=== PATIENT | male | born 1950 | race Caucasian/White ===

== ENCOUNTER 2017-11-12 00:09 | Emergency (ER) | payer OTHER ==
[2017-11-12] MEDS ORDERED: Ketorolac Tromethamine 30 MG/ML VIAL ONE (00:41)
--- NOTE | 2017-11-12 07:42 | RAD ---
SINGLE VIEW CHEST: Date: 11/12/17 COMPARISON: 03/27/16. HISTORY: Chest pain and nonproductive cough. FINDINGS: Single view of the chest shows a normal sized cardiomediastinal silhouette. There is no evidence of c onsolidation, mass, or pleural effusion. The bones are unremarkable. IMPRESSION: No evidence of acute cardiopulmonary disease. POS: [facility]
== END 2017-11-12 01:29 | disposition home or self-care (01) ==
LOC: ERS 00:09
DX: R09.1 Pleurisy (principal); E78.5 Hyperlipidemia, unspecified; E78.00 Pure hypercholesterolemia, unspecified; J44.9 Chronic obstructive pulmonary disease, unspecified; E11.9 Type 2 diabetes mellitus without complications; F43.10 Post-traumatic stress disorder, unspecified; F17.210 Nicotine dependence, cigarettes, uncomplicated; Z79.4 Long term (current) use of insulin; Z79.899 Other long term (current) drug therapy
CPT/HCPCS: 71045; 93005; 96374; 99406; J1885

== ENCOUNTER 2018-02-12 23:02 | Emergency (ER) | payer OTHER ==
--- NOTE | 2018-02-12 23:29 | RAD ---
FOUR VIEWS OF THE RIGHT KNEE: 02/12/18 INDICATION: Tripped over dog at home landing on right arm and right knee. Now with right knee pain. COMPARISON: None. FINDINGS: No acute fracture or subluxation is present. No joint capsular distention is evident. Enthesopathic c hanges seen off of the right knee. There is diffuse osteopenia and mild osteoarthritic change of the right knee. IMPRESSION: No acute osseous abnormality. POS: [facility]
--- NOTE | 2018-02-12 23:30 | RAD ---
SINGLE VIEW OF THE CHEST: 02/12/18 INDICATION: Chest pain after fall at home landing on right arm and right shoulder. COMPARISON: Prior exam dated 11/12/17. FINDINGS: The lungs are clear. The cardiomediastinal silhouette is within normal limits. No pleural effusion, pneumothorax is evident. No definite acute osseous abnormality is demonstrated. IMPRESSION: No acute cardiopulmonary abnormality. POS: [facility]
[2018-02-13] MEDS ORDERED: Morphine 4 MG/ML VIAL ONE (00:46)
[2018-02-13] MEDS ORDERED: Ondansetron ODT 4 MG TAB ONE (00:46)
[2018-02-13] MEDS ORDERED: HYDROcodone/Acetaminophen 5/325 mg Tablet ONE (02:29)
--- NOTE | 2018-02-13 08:32 | CT ---
PRELIMINARY REPORT/[facility]/EMERGENTY AFTER-HOURS PROCEDURE CT Chest Without Intravenous Contrast CLINICAL HISTORY: 68 years old, male; Injury or trauma; Fall; Initial encounter; Abrasion; Patient HX: M68 presents to ed for fall. Pt reports tripping over his dog a few hours ago at home and reports falling. Pt reports right shoulder, right chest, and right knee pain. Pt reports he is unable to take a deep breath due to the pain. Pt denies hitting his head TECHNIQUE: Axial computed tomography images of the chest without intravenous contrast. Coronal and sagittal reformatted images were created and reviewed. COMPARISON: No relevant prior studies available. FINDINGS: Lungs: Mild scarring/subsegmental atelectasis. Minimal emphysema in the lungs. Vague density in the l eft upper lobe on image 17 is nonspecific No mass. No consolidation. Pleural space: Unremarkable. No pneumothorax. No significant effusion. Heart: Coronary calcifications noted. No cardiomegaly. No significant pericardial effusion. Bones/joints: Question minimal irregularity to the right fifth and sixth ribs anteriorly. No dislocat ion. Soft tissues: Unremarkable. Vasculature: Unremarkable. No thoracic aortic aneurysm. Lymph nodes: Unremarkable. No enlarged lymph nodes. Cirrhosis. Faint hypodensity in the right lobe adjacent to the falciform ligament measuring 11 mm not fully characterized IMPRESSION: Question minimal irregularity to the right fifth and sixth ribs anteriorly. Correlate for point tende rness. No definite pneumothorax Coronary artery disease Minimal emphysema Cirrhosis and indeterminate hypodensity in the right lobe which may be further characterized on a non urgent basis Thank you for allowing us to participate in the care of your patient. Dictated and Authenticated by: Roberto Dotson MD 02/13/2018 1:52 AM Central Time ([place] & [place]) FINAL REPORT CT CHEST NONCONTRAST CT THORACIC SPINE NONCONTRAST: DATE: 02/13/18. TIME: Performed on an emergency basis at 0113 hours. HISTORY: Fall. Chest injury. Back injury. FINDINGS: The findings agree with the preliminary report from [facility]. Subtle irregularity involving the anterior aspect of the right 5th and 6th ribs is favored to represent nondisplaced fractures. N o evidence of pneumothorax. Atherosclerosis. Degenerative changes of the thoracic spine are apparent without acute osseous abnormalities demonstra amari. Code QA POS: [facility]
--- NOTE | 2018-04-17 12:32 | EKG ---
Test Reason : Blood Pressure : / mmHG Vent. Rate : 079 BPM Atrial Rate : 079 BPM P-R Int : 196 ms QRS Dur : 096 ms QT Int : 384 ms P-R-T Axes : 055 024 072 degrees QTc Int : 440 ms Normal sinus rhythm Anterior infarct , age undetermined Abnormal ECG Confirmed by OLIVE MERCADO ([id number]), editorial intern NICHOLE COOPER ([id number]) on 04/17/2018 12:31:49 PM Referred By: Confirmed By:OLIVE MERCADO
== END 2018-02-13 02:50 | disposition home or self-care (01) ==
LOC: ERS 23:02
DX: S22.41XA Multiple fractures of ribs, right side, initial encounter for closed fracture (principal); S80.01XA Contusion of right knee, initial encounter; E78.5 Hyperlipidemia, unspecified; E11.9 Type 2 diabetes mellitus without complications; F32.9 Major depressive disorder, single episode, unspecified; F43.10 Post-traumatic stress disorder, unspecified; F17.210 Nicotine dependence, cigarettes, uncomplicated; Z79.4 Long term (current) use of insulin; I10 Essential (primary) hypertension; J44.9 Chronic obstructive pulmonary disease, unspecified; Z79.899 Other long term (current) drug therapy; W01.0XXA Fall on same level from slipping, tripping and stumbling without subsequent striking against object, initial encounter
CPT/HCPCS: 71045; 71250; 93005; 94799; 96374; J2270; Q0162

== ENCOUNTER 2018-02-16 09:29 | Emergency (ER) | payer OTHER ==
--- NOTE | 2018-02-16 11:55 | RAD ---
CHEST 1 VIEW: Date: 02/16/18 HISTORY: Chest pain. COMPARISON: Chest radiograph dated 02/12/18. FINDINGS: Lungs are without focal air space consolidation, pneumothorax, or effusion. Cardiac silhouette and me diastinal contours within normal limits. IMPRESSION: No acute intrathoracic abnormality. POS: [facility]
== END 2018-02-16 11:40 | disposition home or self-care (01) ==
LOC: ERS 09:29
DX: F41.1 Generalized anxiety disorder (principal); E78.5 Hyperlipidemia, unspecified; I10 Essential (primary) hypertension; J44.9 Chronic obstructive pulmonary disease, unspecified; E11.9 Type 2 diabetes mellitus without complications; F32.9 Major depressive disorder, single episode, unspecified; F43.10 Post-traumatic stress disorder, unspecified; F17.210 Nicotine dependence, cigarettes, uncomplicated; Z79.899 Other long term (current) drug therapy; Z79.4 Long term (current) use of insulin
CPT/HCPCS: 71045; 93005; 99406

== ENCOUNTER 2019-09-02 18:45 | Inpatient (IN) | payer OTHER ==
[2019-09-02] MEDS ORDERED: methylPREDNISolone Sod Succ/PF 125 MG/2 ML VIAL ONE (19:04)
[2019-09-02 19:31] LABS: #Basophils 0.1 thou/uL (0.0-0.2); #Eosinphils 0.1 thou/uL (0.0-0.7); #Lymphocytes 3.2 thou/uL (1.20-3.40); #Monocytes 0.6 thou/uL (0.11-0.59); #Neutrophils 6.2 thou/uL (1.40-6.50); %Basophils 0.7 % (0.0-1.0); %Eosinophils 0.9 % (0.0-10.0); %Lymphocytes 31.5 % (21.0-51.0); %Monocytes 6.1 % (0.0-10.0); %Neutrophils 60.9 % (42.0-75.0); Hemoglobin 13.9 g/dL (14.0-18.0); Mean Corpuscular HGB CONC 34.6 g/dL (32.0-36.0); Mean Corpuscular Volume 95.4 fL (78.0-98.0); Mean Platelet Volume 6.5 fL (7.4-10.4); Platelet Count 234 thou/uL (130-400); RBC Distribution Width 13.5 % (11.5-14.5); Red Blood Cell (RBC) Count 4.21 mill/uL (4.70-6.10); White Blood Cell (WBC) Count 10.1 thou/uL (4.8-10.8)
[2019-09-02] MEDS ORDERED: Albuterol Sulfate 2.5 mg/3 ml Neb ONE (19:36)
--- NOTE | 2019-09-02 19:50 | RAD ---
EXAM: Single view of the chest HISTORY: Cough and shortness of breath COMPARISON: 02/16/2018 FINDINGS: Single view of the chest shows a normal sized cardiomediastinal silhouette. There is no thang dence of consolidation, mass, or pleural effusion. The bones are unremarkable. IMPRESSION: No evidence of acute cardiopulmonary disease
[2019-09-02 19:52] LABS: ALT (SGPT) 32 U/L (8-55); AST (SGOT) 32 U/L (5-34); Albumin 4.6 g/dL (3.4-4.8); Alkaline Phosphatase 72 U/L (40-110); Anion Gap 21 mmol/L (10-20); BUN (Urea Nitrogen) 10 mg/dL (8.4-25.7); Bilirubin, Total 0.4 mg/dL (0.2-1.2); CK (CPK) 78 U/L (30-200); Calc. Creatinine Clearance 0 mL/min (70-130); Calcium 9.5 mg/dL (7.8-10.44); Carbon Dioxide 20 mmol/L (23-31); Chloride 101 mmol/L (98-107); Estimated GFR-MDRD Greater than 90; Globulin 2.9 g/dL (2.4-3.5); Glucose 132 mg/dL (80-115); Potassium 3.7 mmol/L (3.5-5.1); Protein, Total 7.5 g/dL (5.8-8.1); Sodium 138 mmol/L (136-145)
[2019-09-02] MEDS ORDERED: Sodium Chloride 0.9% 100 ML ONE (20:01)
[2019-09-02] MEDS ORDERED: Piperacillin/Tazobactam 4.5 GM VIAL ONE ×2 (20:01→20:03)
[2019-09-02] MEDS ORDERED: Albuterol Sulfate 2.5 mg/0.5 ml Neb ONE (20:19)
[2019-09-02] MEDS ORDERED: Benzonatate 100 MG CAP PO SCH (21:45)
[2019-09-02 22:06] LABS: Bacteria/HPF None Seen HPF (None Seen); Bilirubin Negative (Negative); Blood, Urine Trace (Negative); Clarity Clear (Clear); Glucose, Urine (Dipstick) 150 mg/dL (Negative); Leukocyte 25 Leu/uL (Negative); Mucous/LPF 1+ LPF (<2+); Nitrite Negative (Negative); Protein, Urine (Dipstick) 20 mg/dL (Neg-Trace); RBC/HPF 0-3 HPF (0-3); Squamous Epithelial 0-3 HPF (0-3); Urobilinogen Normal mg/dL (Less than 2); WBC/HPF 0-3 HPF (0-3)
[2019-09-02 22:23] LABS: Lactic Acid 9.1 mmol/L (0.5-2.2)
[2019-09-02] MEDS ORDERED: Lorazepam 2 MG/ML VIAL ONE (22:51)
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
[2019-09-02] MEDS ORDERED: Thiamine HCl 200 MG/2 ML VIAL SLOW IVP SCH (23:30)
[2019-09-02] MEDS ORDERED: Dextrose 5 %-0.45 % NaCl 1,000 ML IV SCH (23:30)
[2019-09-02] MEDS ORDERED: Loperamide HCl 2 MG CAP PO PRN (23:31)
[2019-09-02] MEDS ORDERED: hydrALAZINE 20 MG/ML VIAL SLOW IVP PRN (23:31)
[2019-09-02] MEDS ORDERED: Senokot S 8.6-50 MG TAB PO PRN (23:31)
[2019-09-02] MEDS ORDERED: cloNIDine 0.1 MG TAB PO PRN (23:31)
[2019-09-02] MEDS ORDERED: Dextrose 50% Abboject 50 ML SYRINGE SLOW IVP PRN (23:31)
[2019-09-02] MEDS ORDERED: Dextrose 5% in Water 1,000 ML IV PRN (23:31)
[2019-09-02] MEDS ORDERED: HumaLOG 300 UNITS/3 ML VIAL SC PRN (23:31)
[2019-09-02] MEDS ORDERED: Ondansetron PF 4 MG/2 ML Vial IVP PRN (23:31)
[2019-09-02] MEDS ORDERED: Acetaminophen 325 MG TAB PO PRN (23:31)
[2019-09-02] MEDS ORDERED: diphenhydrAMINE 25 MG CAP PO PRN (23:31)
[2019-09-02] MEDS ORDERED: Cepastat Lozenges 1 LOZ PO PRN (23:31)
[2019-09-02] MEDS ORDERED: Loratadine 10 MG TAB PO PRN (23:42)
[2019-09-02] MEDS ORDERED: Bacteriostatic Water 30 ML VIAL FS PRN (23:44)
[2019-09-03] MEDS: Diabetic Tussin 200 MG/10 ML UDCUP PO PRN ×3 (00:13→20:37)
[2019-09-03] MEDS: traZODone HCl 50 MG TAB PO PRN ×2 (00:13→20:37)
[2019-09-03] MEDS ORDERED: HumaLOG 300 UNITS/3 ML VIAL SC SCH (01:15)
[2019-09-03] MEDS: methylPREDNISolone Sod Succ 40 MG VIAL IVP SCH ×5 (01:42→23:43)
[2019-09-03] MEDS: Benzonatate 100 MG CAP PO PRN ×3 (01:53→20:37)
[2019-09-03 03:28] LABS: Lactic Acid 4.2 mmol/L (0.5-2.2)
[2019-09-03 03:39] LABS: ALT (SGPT) 37 U/L (8-55); AST (SGOT) 40 U/L (5-34); Alkaline Phosphatase 60 U/L (40-110); Anion Gap 17 mmol/L (10-20); BUN (Urea Nitrogen) 11 mg/dL (8.4-25.7); Bilirubin, Total 0.3 mg/dL (0.2-1.2); Calc. Creatinine Clearance 107 mL/min (70-130); Calcium 8.5 mg/dL (7.8-10.44); Carbon Dioxide 19 mmol/L (23-31); Chloride 105 mmol/L (98-107); Estimated GFR-MDRD Greater than 90; Globulin 2.7 g/dL (2.4-3.5); Glucose 307 mg/dL (80-115); Potassium 4.3 mmol/L (3.5-5.1); Protein, Total 6.7 g/dL (5.8-8.1); Sodium 137 mmol/L (136-145)
[2019-09-03 07:08] LABS: Lactic Acid 2.8 mmol/L (0.5-2.2)
[2019-09-03] MEDS: Enoxaparin Sodium 40 MG/0.4 ML SYRINGE SC SCH (08:12)
[2019-09-03] MEDS: Lorazepam 2 MG/ML VIAL SLOW IVP PRN ×2 (08:16→16:21)
[2019-09-03] MEDS: Folic Acid 1 MG TAB PO SCH (08:17)
[2019-09-03] MEDS: Thiamine 100 MG TAB PO SCH (08:17)
[2019-09-03] MEDS: glipiZIDE 5 MG TAB PO SCH ×2 (08:17→16:21)
[2019-09-03] MEDS: Famotidine 20 MG TAB PO SCH ×2 (08:17→20:37)
[2019-09-03] MEDS: Multivit, Therapeutic 1 TAB PO SCH (08:17)
[2019-09-03] MEDS: Aspirin 81 mg Enteric Coated Tablet PO SCH (08:17)
[2019-09-03] MEDS: Insulin Glargine 17 UNITS in Pre-Filled Syringe 1 EACH SC SCH ×2 (09:20→20:46)
[2019-09-03] MEDS: Lactated Ringer's 1,000 ML IV SCH ×3 (09:20→20:36)
[2019-09-03] MEDS: Nicotine 14 MG PATCH TD SCH (09:21)
[2019-09-03] MEDS ORDERED: Iopamidol 370 76% 100 ML VIAL ONE (09:47)
--- NOTE | 2019-09-03 11:19 | CT ---
EXAM: CT angiogram of the chest including 3-D rendering: HISTORY: Cough, shortness of breath COMPARISON: 02/13/[address] FINDINGS: Adequate opacification of the main pulmonary arteries. The more peripheral particularly lower lobe br anches are somewhat less than optimally opacified and show some motion artifact which lowers the sensitivity of the smaller branch peripheral arteries. 3 vessel coronary calcific disease. Several areas of groundglass opacity changes in the right upper lobe measure up to 0.9 x 1.6 cm in si ze as well as a groundglass opacity focus in the medial aspect of the right lower lobe measuring 1.0 x 2.3 cm in size. These are nonspecific but focal areas of inflammation/infection could certainly account for this. They were not present on the prior study. No evidence for aortic aneurysm or dissection. No convincing CT evidence for acute pulmonary embolism. No evidence for mediastinal mass or adenopathy. No evidence for pleural or pericardial effusion. Evidence for portal hypertension. 1.1 cm nodular focus in the left adrenal gland possibly an adenoma. Somewhat nodular liver margin. IMPRESSION: No convincing CT evidence for acute pulmonary embolism. Multiple scattered foci of groundglass opacity changes in the right lower lobe and right upper lobe, nonspecific with inflammatory/infectious etiologies being considered more likely. Consider 3 month follow-up CT scan for further assessment in this regard. Other findings as above.
[2019-09-03] MEDS: HumaLOG 300 UNITS/3 ML VIAL SC PRN ×2 (12:38→18:33)
--- NOTE | 2019-09-03 13:16 | PDOC.HOSPP ---
- Subjective Encounter Date: 09/03/19 Encounter Time: 09:14 Subjective: 69 y/o male with chronic alcohol and tobacco abuse, HTN, COPD, DM and others admitted with worsening cough and SOB associated with body aches, pleuritic chest pain and wheezing.. Found to have lactic acidosis. Feeling better. Still coughing. No fever, nausea or vomiting. - Objective Vital Signs & Weight: Vital Signs (12 hours) Temp Pulse Resp BP Pulse Ox 09/03/19 12:00 98.3 F 87 18 118/70 94 L 09/03/19 10:57 77 20 96 09/03/19 07:52 81 20 95 09/03/19 07:40 97 09/03/19 07:38 99.1 F 78 18 139/72 97 09/03/19 03:31 98.1 F 92 18 122/64 93 L Weight Weight 186 lb 11.2 oz I&O: 09/02/19 09/03/19 09/04/19 06:59 06:59 06:59 Intake Total 640 Output Total 1500 Balance -860 Result Diagrams: 09/02/19 19:19 09/03/19 03:01 Additional Labs: Accuchecks 09/03/19 09/02/19 05:12 23:46 POC Glucose 213 H 224 H Hospitalist ROS - Medication Medications: Active Medications Generic Name Dose Route Start Last Admin Trade Name Freq PRN Reason Stop Dose Admin Albuterol/Ipratropium 3 ml 09/03/19 07:00 09/03/19 10:57 Duoneb NEB 3 ml [id number] OUMOU Administration Aspirin 81 mg 09/03/19 09:00 09/03/19 08:17 Ecotrin PO 81 mg DAILY OUMOU Administration Benzonatate 100 mg 09/02/19 23:31 09/03/19 08:16 Tessalon PO 100 mg Q6H PRN Administration Cough Enoxaparin Sodium 40 mg 09/03/19 09:00 09/03/19 08:12 Lovenox SC 40 mg 0900 OUMOU Administration Famotidine 20 mg 09/03/19 09:00 09/03/19 08:17 Pepcid PO 20 mg BID OUMOU Administration Folic Acid 1 mg 09/03/19 09:00 09/03/19 08:17 Folvite PO 1 mg DAILY OUMOU Administration Glipizide 10 mg 09/03/19 07:30 09/03/19 08:17 Glucotrol PO 10 mg BID-AC OUMOU Administration Guaifenesin 200 mg 09/02/19 23:31 09/03/19 05:44 Robitussin Sf PO 200 mg Q4H PRN Administration Cough Insulin Glargine 17 units/ 0.17 mls @ 0 mls/hr 09/03/19 09:00 09/03/19 09:20 Miscellaneous Medication SC 0.17 mls BID OUMOU Administration As Directed Lactated Ringer's 1,000 mls @ 100 mls/hr 09/03/19 08:15 09/03/19 09:20 Lactated Ringer's IV 1,000 mls .Q10H OUMOU Administration Insulin Human Lispro 0 units 09/03/19 04:15 09/03/19 12:38 Humalog SC 10 unit .MODERATE SLIDING SC PRN Administration Moderate Correctional Scale Lorazepam 2 mg 09/02/19 23:28 09/03/19 08:16 Ativan SLOW IVP 2 mg Q2H PRN Administration Anxiety/Agitation Methylprednisolone Sodium Succinate 40 mg 09/02/19 23:59 09/03/19 12:38 Solu-Medrol IVP 40 mg Q6HR OUMOU Administration Metoprolol Succinate 25 mg 09/03/19 09:00 09/03/19 08:17 Toprol Xl PO 25 mg DAILY OUMOU Administration Multivitamins 1 tab 09/03/19 09:00 09/03/19 08:17 Theragran PO 1 tab DAILY OUMOU Administration Nicotine 14 mg 09/03/19 09:00 09/03/19 09:21 Nicoderm Patch TD 14 mg Q24HR OUMOU Administration Ondansetron HCl 4 mg 09/02/19 23:31 09/03/19 08:16 Zofran IVP 4 mg Q6H PRN Administration Nausea/Vomiting Thiamine HCl 100 mg 09/03/19 09:00 09/03/19 08:17 Thiamine PO 100 mg DAILY OUMOU Administration Trazodone HCl 100 mg 09/02/19 23:39 09/03/19 00:13 Desyrel PO 100 mg HS PRN Administration Insomnia - Exam General Appearance: awake alert Eye: anicteric sclera ENT: normocephalic atraumatic, moist mucosa Neck: supple, no JVD Heart: RRR Respiratory: no ronchi, normal chest expansion Respiratory - other findings: fair air entry with fine crackles Gastrointestinal: soft, non-tender, non-distended, normal bowel sounds Extremities: no cyanosis, no edema Neurological: cranial nerve grossly intact, no focal deficits Psychiatric: normal affect, A&O x 3 Hosp A/P (1) COPD exacerbation Code(s): J44.1 - CHRONIC OBSTRUCTIVE PULMONARY DISEASE W (ACUTE) EXACERBATION Status: Acute (2) Metabolic acidosis Code(s): E87.2 - ACIDOSIS Status: Acute (3) Elevated lactic acid level Code(s): R79.89 - OTHER SPECIFIED ABNORMAL FINDINGS OF BLOOD CHEMISTRY Status : Acute (4) Alcohol abuse Code(s): F10.10 - ALCOHOL ABUSE, UNCOMPLICATED Status: Acute (5) Alcoholic ketoacidosis Code(s): E87.2 - ACIDOSIS Status: Acute (6) Cirrhosis Code(s): K74.60 - UNSPECIFIED CIRRHOSIS OF LIVER Status: Acute (7) Diabetes Code(s): E11.9 - TYPE 2 DIABETES MELLITUS WITHOUT COMPLICATIONS Status: Acute (8) HCV (hepatitis C virus) Code(s): B19.20 - UNSPECIFIED VIRAL HEPATITIS C WITHOUT HEPATIC COMA Status: Acute (9) HLD (hyperlipidemia) Code(s): E78.5 - HYPERLIPIDEMIA, UNSPECIFIED Status: Acute (10) History of liver cancer Code(s): Z85.05 - PERSONAL HISTORY OF MALIGNANT NEOPLASM OF LIVER Status: Acute - Plan Continue empirical antibiotics and IV fluid. Alcohol withdrawal treatment to continue. Substitute NS with LR due to worsening acidosis. Continue bronchodilators Get CTA chest. Repeat labs in the am.
[2019-09-03] MEDS: HYDROcodone/Acetaminophen 5/325 mg Tablet PO PRN (20:37)
[2019-09-03] MEDS ORDERED: Prevnar 13-Val Conj/PF 0.5 ML SYRINGE IM ONE (21:00)
[2019-09-03] MEDS ORDERED: Insulin Glargine 20 UNITS in Pre-Filled Syringe 1 EACH SC SCH (21:00)
[2019-09-03] MEDS ORDERED: Atorvastatin Calcium 40 MG TAB PO SCH (21:00)
[2019-09-04 02:04] VITALS: BMI 26.2
[2019-09-04 05:18] LABS: Anion Gap 14 mmol/L (10-20); BUN (Urea Nitrogen) 10 mg/dL (8.4-25.7); Calc. Creatinine Clearance 115 mL/min (70-130); Calcium 9.3 mg/dL (7.8-10.44); Carbon Dioxide 22 mmol/L (23-31); Chloride 105 mmol/L (98-107); Estimated GFR-MDRD Greater than 90; Glucose 267 mg/dL (80-115); Potassium 4.1 mmol/L (3.5-5.1); Sodium 137 mmol/L (136-145)
[2019-09-04 05:32] LABS: Band 8 % (5-11); Hemoglobin 12.6 g/dL (14.0-18.0); Hypochromia SLIGHT = 6-15 cells (100X) (0-5/hpf); Lymphocytes 3 % (21-51); MDiff Complete? YES; Mean Corpuscular Hemoglobin 32.2 pg (27.0-31.0); Mean Corpuscular Volume 97.6 fL (78.0-98.0); Mean Platelet Volume 7.3 fL (7.4-10.4); Monocytes 3 % (0-10); Neutrophil 86 % (42-75); Platelet Count 209 thou/uL (130-400); Platelet Morphology Comment Appears Adequate; RBC Distribution Width 13.6 % (11.5-14.5); Red Blood Cell (RBC) Count 3.92 mill/uL (4.70-6.10)
[2019-09-04] MEDS: methylPREDNISolone Sod Succ 40 MG VIAL IVP SCH (05:55)
[2019-09-04] MEDS: Lorazepam 2 MG/ML VIAL SLOW IVP PRN ×2 (05:55→10:17)
[2019-09-04 08:06] VITALS: BP 151/68; TEMP 97.8
[2019-09-04] MEDS: Folic Acid 1 MG TAB PO SCH (08:10)
[2019-09-04] MEDS: Insulin Glargine 17 UNITS in Pre-Filled Syringe 1 EACH SC SCH (08:10)
[2019-09-04] MEDS: Aspirin 81 mg Enteric Coated Tablet PO SCH (08:10)
[2019-09-04] MEDS: Thiamine 100 MG TAB PO SCH (08:10)
[2019-09-04] MEDS: glipiZIDE 5 MG TAB PO SCH (08:10)
[2019-09-04] MEDS: Multivit, Therapeutic 1 TAB PO SCH (08:10)
[2019-09-04] MEDS: Enoxaparin Sodium 40 MG/0.4 ML SYRINGE SC SCH (08:10)
[2019-09-04] MEDS: Famotidine 20 MG TAB PO SCH (08:10)
[2019-09-04] MEDS: Nicotine 14 MG PATCH TD SCH ×2 (08:11→08:18)
[2019-09-04] MEDS: HYDROcodone/Acetaminophen 5/325 mg Tablet PO PRN (08:11)
[2019-09-04] MEDS: Lactated Ringer's 1,000 ML IV SCH (08:12)
[2019-09-04] MEDS: HumaLOG 300 UNITS/3 ML VIAL SC PRN ×2 (08:21→11:07)
--- NOTE | 2019-09-04 15:31 | DIS ---
DATE OF ADMISSION: 09/02/2019 DATE OF DISCHARGE: 09/04/2019 PRIMARY CARE PROVIDER: BON. DISCHARGE DIAGNOSES: 1. Chronic obstructive pulmonary disease exacerbation. 2. Right multifocal pneumonia. 3. Sepsis. present on admission. 4. Lactic acidosis thought to be due to metformin use. 5. Metabolic acidosis 6. Possible alcoholic ketoacidosis. 7. Liver cirrhosis. 8. Diabetes mellitus. 9. Hepatitis C infection. 10. Hyperlipidemia. 11. Prior history of liver cancer, status post resection. 12. Post-traumatic stress disorder. 13. Alcohol abuse. HOSPITAL COURSE: A 69-year-old male with known history of chronic alcohol and tobacco abuse, hypertension, COPD, diabetes, and others, admitted with worsening cough and shortness of breath associated with generalized body ache, pleuritic chest pain, and wheezing. The patient was found to have severe lactic acidosis initially forward trending to 10. He was also found to have a hyperglycemia with blood sugars in 300 as well as metabolic acidosis. Impression of COPD exacerbation was made , and the patient was started on IV antibiotics, steroid, bronchodilators, and mucolytics. The patient improved and lactic acidosis resolved with IV fluids and insulin therapy. Further evaluation with CT angio chest showed no PE; however, multifocal right lung infiltrates noted suggestive of infectious etiology. The patient remained on room air with good saturation. He remained stable and was subsequently discharged. Given that he had lactic acidosis on presentation and was found to be on metformin, it was felt that the lactic acidosis was due to metformin, hence it was discontinued. The patient also was dry on presentation, hence hydrochlorothiazide was discontinued at discharge. The patient with chronic alcohol abuse, also received Ativan p.r.n. for alcohol withdrawal protocol. He was advised to follow up with PCP in 1 week. PHYSICAL EXAMINATION: VITAL SIGNS: Temperature 97.8, pulse 79, respiratory rate 18, SpO2 of 92% on room air, and blood pressure is 151/68. GENERAL: Male patient in no obvious distress. Afebrile. Anicteric. Acyanotic. HEENT: Normocephalic and atraumatic. Oral mucosa is moist. CARDIOVASCULAR: Regular rhythm and rate with normal heart sounds 1 and 2. RESPIRATORY: Fair air entry bilaterally with some crackles on transmitted breath sound on the right lungs. No rhonchi were appreciated. GI: Full, soft, nontender, and nondistended with normal bowel sounds. EXTREMITIES: Grossly normal looking atraumatic with no edema or erythema. MOLDER HAND: Conscious, alert, and oriented x3 with appropriate mental status. Cranial nerves 2 through 12 are grossly intact. PSYCHIATRIC: Anxious with occasional tremor of the right upper extremity. DISCHARGE CONDITION: Improved. DISCHARGE DISPOSITION: Home. FOLLOWUP: Follow up with PCP in 1 week. DISCHARGE MEDICATIONS: 1. Amlodipine 10 mg p.o. daily. 2. Lipitor 40 mg p.o. daily at bedtime. 3. Glipizide 10 mg p.o. b.i.d. 4. Guaifenesin/dextromethorphan p.o. b.i.d. 5. NovoLog insulin 5 units subcutaneously daily. 6. Levemir 35 units subcutaneous daily. 7. Ipratropium bromide two sprays both nares b.i.d. 8. Loratadine 10 mg p.o. daily. 9. Metoprolol 25 mg p.o. daily. 10. Omeprazole 40 mg p.o. daily. 11. Trazodone 200 mg p.o. daily at bedtime. 12. Aspirin 81 mg p.o. daily. 13. Folic acid 1 mg p.o. daily. 14. Levofloxacin 750 mg p.o. daily for 7 days. 15. Lorazepam 1 mg p.o. t.i.d. p.r.n. for anxiety x20 tablets. 16. Multivitamin one tablet p.o. daily. 17. Thiamine 100 mg p.o. daily. Discharge took more than 37 minutes. Job ID: [id number] [facility]
--- NOTE | 2019-09-05 07:53 | PQF ---
Ortega Mckeon OBI, CHIZOBA C [id number] CLINICAL DOCUMENTATION CLARIFICATION FORM: POST DISCHARGE Addendum to original discharge summary date: ____ Late entry note date: __ DATE: 09/05/19 ATTN: Lor Chin Obi Please exercise your independent, professional judgment in responding to the clarification form. Clinical indicators are provided on the bottom of this form for your review Please check appropriate box(s) to clarify if the following diagnosis has been ruled in or ruled out: Sepsis [ X ] Ruled in diagnosis [ ] Continue to treat [ X ] Resolved [ ] Ruled out diagnosis [ ] Cannot rule out diagnosis [ ] Other diagnosis [ ] Unable to determine In addition, please specify: Present on Admission (POA): [x ] Yes [ ] No [ ] Unable to determine For continuity of documentation, please document condition throughout progress notes and discharge summary. Thank You. CLINICAL INDICATORS - SIGNS / SYMPTOMS / LABS ED provider note p1 09/02 Pt presents for evaluation of SOB ED provider note p3 09/02 Vital sign BP 103/52, Pulse 108, Resp 22 ED provider note p1 09/02 Pt meets Sepsis criteria with tachypnea, tachycardia and elevated lactic acid RISK FACTORS ED provider note p1 09/02 Pneumonia ED provider note p1 09/02 COPD exacerbation ED provider note p1 09/02 Sepsis TREATMENTS JAN 06 IV Zosyn JAN 06 IV Levaquin JAN 06 Solu-medrol injection (This form is maintained as a part of the permanent medical record) 2014 [email or web address]. All Rights Reserved [email or web address] [not provided] [email or web address]
== END 2019-09-04 11:30 | disposition home or self-care (01) | DRG 871 ==
LOC: ERS 18:45 → 2NO 23:51
PROVIDERS: ADMIT Internal Medicine; ATTEND Internal Medicine
DX: A41.9 Sepsis, unspecified organism (principal); J18.9 Pneumonia, unspecified organism; J44.1 Chronic obstructive pulmonary disease with (acute) exacerbation; E87.2 Acidosis; F10.239 Alcohol dependence with withdrawal, unspecified; J44.0 Chronic obstructive pulmonary disease with (acute) lower respiratory infection; E78.5 Hyperlipidemia, unspecified; I10 Essential (primary) hypertension; F17.200 Nicotine dependence, unspecified, uncomplicated; K74.60 Unspecified cirrhosis of liver; B19.20 Unspecified viral hepatitis C without hepatic coma; T38.3X5A Adverse effect of insulin and oral hypoglycemic [antidiabetic] drugs, initial encounter; F43.10 Post-traumatic stress disorder, unspecified; E11.65 Type 2 diabetes mellitus with hyperglycemia; Z85.05 Personal history of malignant neoplasm of liver; Z28.21 Immunization not carried out because of patient refusal; Z79.899 Other long term (current) drug therapy; Z79.4 Long term (current) use of insulin
CPT/HCPCS: 36415; 36416; 71045; 71275; 80048; 80053; 81003; 81015; 82550; 83605; 83880; 84484; 85025; 87040; 87081; 87430; 87633; 93005; 94640; 96365; 96366; 96367; 96375; 99406; J1650; J1815; J1956; J2060; J2405; J2543; J2920; J2930; J3411; J3490; J7611; J7620; Q9967

== ENCOUNTER 2019-10-22 18:35 | Emergency (ER) | payer OTHER | END 2019-10-22 19:49 | disposition home or self-care (01) | LOC: ERS 18:35 | DX: F10.129 Alcohol abuse with intoxication, unspecified (principal); J44.9 Chronic obstructive pulmonary disease, unspecified; E11.9 Type 2 diabetes mellitus without complications; I10 Essential (primary) hypertension; F17.210 Nicotine dependence, cigarettes, uncomplicated | CPT/HCPCS: 99284 ==

== ENCOUNTER 2019-11-11 00:29 | Emergency (ER) | payer OTHER ==
[2019-11-11 01:26] LABS: #Eosinphils 0.1 thou/uL (0.0-0.7); #Monocytes 0.4 thou/uL (0.11-0.59); #Neutrophils 5.1 thou/uL (1.40-6.50); %Basophils 0.7 % (0.0-1.0); %Eosinophils 0.9 % (0.0-10.0); %Monocytes 6.3 % (0.0-10.0); %Neutrophils 77.2 % (42.0-75.0); Hemoglobin 14.2 g/dL (14.0-18.0); Mean Corpuscular HGB CONC 34.2 g/dL (32.0-36.0); Mean Corpuscular Hemoglobin 32.9 pg (27.0-31.0); Mean Corpuscular Volume 96.3 fL (78.0-98.0); Mean Platelet Volume 6.8 fL (7.4-10.4); Platelet Count 216 thou/uL (130-400); RBC Distribution Width 12.9 % (11.5-14.5); White Blood Cell (WBC) Count 6.6 thou/uL (4.8-10.8)
[2019-11-11 01:47] LABS: ALT (SGPT) 28 U/L (8-55); AST (SGOT) 31 U/L (5-34); Albumin 4.2 g/dL (3.4-4.8); Alcohol Less than 10 mg/dL (Less than 10); Alkaline Phosphatase 67 U/L (40-110); Anion Gap 16 mmol/L (10-20); BUN (Urea Nitrogen) 12 mg/dL (8.4-25.7); Bilirubin, Total 0.4 mg/dL (0.2-1.2); Calc. Creatinine Clearance 0 mL/min (70-130); Calcium 9.6 mg/dL (7.8-10.44); Carbon Dioxide 24 mmol/L (23-31); Chloride 104 mmol/L (98-107); Estimated GFR-MDRD Greater than 90; Globulin 2.9 g/dL (2.4-3.5); Glucose 217 mg/dL (80-115); Potassium 3.7 mmol/L (3.5-5.1); Protein, Total 7.1 g/dL (5.8-8.1); Sodium 140 mmol/L (136-145)
[2019-11-11 01:47] LABS: Bacteria/HPF None Seen HPF (None Seen); Bilirubin Negative (Negative); Blood, Urine Trace (Negative); Clarity Clear (Clear); Glucose, Urine (Dipstick) Greater than 1000 mg/dL (Negative); Leukocyte 75 Leu/uL (Negative); Nitrite Negative (Negative); Protein, Urine (Dipstick) 10 mg/dL (Neg-Trace); RBC/HPF 0-3 HPF (0-3); Squamous Epithelial 0-3 HPF (0-3); Urobilinogen Normal mg/dL (Less than 2); WBC/HPF 21-50 HPF (0-3)
== END 2019-11-11 02:35 | disposition home or self-care (01) ==
LOC: ERS 00:29
DX: E11.649 Type 2 diabetes mellitus with hypoglycemia without coma (principal); F17.210 Nicotine dependence, cigarettes, uncomplicated; J44.9 Chronic obstructive pulmonary disease, unspecified; I10 Essential (primary) hypertension; E78.00 Pure hypercholesterolemia, unspecified; F32.9 Major depressive disorder, single episode, unspecified; E78.5 Hyperlipidemia, unspecified; F43.10 Post-traumatic stress disorder, unspecified; Z79.4 Long term (current) use of insulin; Z79.82 Long term (current) use of aspirin; Z79.899 Other long term (current) drug therapy; Z71.6 Tobacco abuse counseling
CPT/HCPCS: 36415; 36416; 80053; 80307; 81003; 81015; 85025; 87086; 99284

== ENCOUNTER 2020-12-23 06:12 | Emergency (ER) | payer OTHER ==
[2020-12-23] MEDS ORDERED: Dextrose 50% Abboject 50 ML SYRINGE ONE (06:35)
[2020-12-23 06:46] LABS: #Lymphocytes 1.8 thou/uL (1.20-3.40); #Monocytes 0.3 thou/uL (0.11-0.59); #Neutrophils 5.9 thou/uL (1.40-6.50); %Basophils 0.3 % (0.0-1.0); %Eosinophils 0.1 % (0.0-10.0); %Lymphocytes 22.7 % (21.0-51.0); %Monocytes 3.3 % (0.0-10.0); %Neutrophils 73.5 % (42.0-75.0); Hemoglobin 15.8 g/dL (14.0-18.0); Mean Corpuscular Hemoglobin 35.3 pg (27.0-31.0); Platelet Count 246 thou/uL (130-400); RBC Distribution Width 12.2 % (11.5-14.5); Red Blood Cell (RBC) Count 4.48 mill/uL (4.70-6.10)
[2020-12-23 06:51] LABS: INR-International Normal Ratio 0.8; Prothrombin Time 11.6 sec (12.0-14.7)
[2020-12-23 07:05] LABS: Acetaminophen Less than 6.0 mcg/mL (10.0-30.0); Alcohol 13 mg/dL (Less than 10); Salicylate Less than 8.0 mg/dL (15.0-30.0)
[2020-12-23 07:06] LABS: ALT (SGPT) 36 U/L (8-55); AST (SGOT) 46 U/L (5-34); Albumin 4.7 g/dL (3.4-4.8); Alkaline Phosphatase 74 U/L (40-110); Anion Gap 23 mmol/L (10-20); BUN (Urea Nitrogen) 12 mg/dL (8.4-25.7); Bilirubin, Total 0.4 mg/dL (0.2-1.2); Calc. Creatinine Clearance 0 mL/min (70-130); Calcium 9.6 mg/dL (7.8-10.44); Carbon Dioxide 21 mmol/L (23-31); Chloride 104 mmol/L (98-107); Globulin 3.4 g/dL (2.4-3.5); Potassium 4.7 mmol/L (3.5-5.1); Protein, Total 8.1 g/dL (5.8-8.1); Sodium 143 mmol/L (136-145)
[2020-12-23 07:12] LABS: Glucose 41 mg/dL (80-115)
--- NOTE | 2020-12-23 07:41 | CT ---
Head CT without contrast 12/23/2020: COMPARISON: 08/10/2003 HISTORY: Headache, altered mental status TECHNIQUE: Axial CT imaging at 2.5 mm intervals from vertex through skull base without contrast. Spring nal and sagittal reformatted imaging obtained. FINDINGS: The visualized paranasal sinuses and mastoid air cells are well-aerated. No displaced lio rial fracture, intracranial hemorrhage, midline shift, or mass effect. Distal vertebral artery and cavernous carotid artery atherosclerotic calcification present. No displaced calvarial fracture. IMPRESSION: No intracranial hemorrhage or displaced calvarial fracture.
--- NOTE | 2020-12-23 08:00 | RAD ---
EXAM: Chest one view: HISTORY: Headaches, altered mental status COMPARISON: 09/02/2019 FINDINGS: Heart size: Within normal limits. Lungs: Clear of acute process. No evidence for confluent lobar pneumonia, significant pleural effusion, acute edema, or pneumothorax , or other significant acute process. IMPRESSION: No significant acute intrathoracic disease.
[2020-12-23] MEDS ORDERED: Dexamethasone 10 MG/ML VIAL ONE (08:46)
[2020-12-23] MEDS ORDERED: diphenhydrAMINE 50 MG/ML VIAL ONE (08:46)
[2020-12-23] MEDS ORDERED: Magnesium 2 GM/50 ML BAG (IN WATER) ONE (08:46)
[2020-12-23] MEDS ORDERED: Metoclopramide HCl 10 MG/2 ML VIAL ONE (09:00)
[2020-12-23 10:04] LABS: Amphetamine Not Detected (NotDetected); Barbiturates Screen Not Detected (NotDetected); Benzodiazepine Screen Not Detected (NotDetected); Cocaine Metabolite Screen Not Detected (NotDetected); Medtox Control Line Valid? VALID (VALID); Medtox Reader # READER 4; Methadone Not Detected (NotDetected); Methamphetamine Not Detected (NotDetected); Opiate Screen Not Detected (NotDetected); Oxycodone Screen Not Detected (NotDetected); Phencyclidine (PCP) Not Detected (NotDetected); THC/Cannabinoid Screen Not Detected (NotDetected); Tricyclic Screen Not Detected (NotDetected)
[2020-12-23] MEDS ORDERED: Acetaminophen 500 MG TAB ONE (11:25)
[2020-12-23] MEDS ORDERED: clonazePAM 0.5 MG TAB ONE (12:23)
[2020-12-23 17:26] LABS: SARS-CoV-2 PCR by NAA Not Detected (NotDetected)
== END 2020-12-23 18:08 ==
LOC: ERS 06:12
DX: R55 Syncope and collapse (principal); R51.9 Headache, unspecified; H53.9 Unspecified visual disturbance; E11.9 Type 2 diabetes mellitus without complications; E78.5 Hyperlipidemia, unspecified; E78.00 Pure hypercholesterolemia, unspecified; Z20.822 Contact with and (suspected) exposure to COVID-19; J44.9 Chronic obstructive pulmonary disease, unspecified; I10 Essential (primary) hypertension; F17.210 Nicotine dependence, cigarettes, uncomplicated; Z79.4 Long term (current) use of insulin; Z79.899 Other long term (current) drug therapy; Z79.82 Long term (current) use of aspirin
CPT/HCPCS: 36415; 36416; 70450; 71045; 80053; 80306; 80307; 82140; 82550; 83880; 84484; 85025; 85610; 85730; 87635; 93005; 96365; 96368; 96375; J1100; J1200; J2765; J3475; U0003; U0005

== ENCOUNTER 2021-04-09 12:28 | Emergency (ER) | payer OTHER ==
[2021-04-09 13:31] LABS: #Basophils 0.1 thou/uL (0.0-0.2); #Lymphocytes 2.6 thou/uL (1.20-3.40); #Monocytes 0.5 thou/uL (0.11-0.59); #Neutrophils 4.9 thou/uL (1.40-6.50); %Basophils 1.1 % (0.0-1.0); %Eosinophils 0.4 % (0.0-10.0); %Lymphocytes 31.6 % (21.0-51.0); %Monocytes 6.1 % (0.0-10.0); %Neutrophils 60.8 % (42.0-75.0); Hemoglobin 14.7 g/dL (14.0-18.0); Mean Corpuscular HGB CONC 35.9 g/dL (32.0-36.0); Mean Corpuscular Hemoglobin 35.5 pg (27.0-31.0); Mean Corpuscular Volume 98.8 fL (78.0-98.0); Mean Platelet Volume 6.9 fL (7.4-10.4); Platelet Count 252 thou/uL (130-400); RBC Distribution Width 12.5 % (11.5-14.5); Red Blood Cell (RBC) Count 4.15 mill/uL (4.70-6.10); White Blood Cell (WBC) Count 8.1 thou/uL (4.8-10.8)
[2021-04-09 13:52] LABS: ALT (SGPT) 33 U/L (8-55); AST (SGOT) 40 U/L (5-34); Albumin 4.3 g/dL (3.4-4.8); Alkaline Phosphatase 71 U/L (40-110); Anion Gap 14 mmol/L (10-20); BUN (Urea Nitrogen) 10 mg/dL (8.4-25.7); Bilirubin, Total 0.6 mg/dL (0.2-1.2); Calc. Creatinine Clearance 0 mL/min (70-130); Calcium 9.7 mg/dL (7.8-10.44); Carbon Dioxide 25 mmol/L (23-31); Chloride 100 mmol/L (98-107); Globulin 3.1 g/dL (2.4-3.5); Glucose 157 mg/dL (80-115); Lipase 26 U/L (8-78); Potassium 3.7 mmol/L (3.5-5.1); Protein, Total 7.4 g/dL (5.8-8.1); Sodium 135 mmol/L (136-145)
[2021-04-09 15:07] LABS: Bilirubin Negative (Negative); Blood, Urine Negative (Negative); Glucose, Urine (Dipstick) Negative (Negative); Ketone, Urine 15 mg/dL (Negative); Leukocyte Negative (Negative); Nitrite Negative (Negative); Protein, Urine (Dipstick) Negative (Neg-Trace); Specific Gravity, Urine 1.015 (1.005-1.030)
[2021-04-09 15:09] LABS: Clarity Clear (Clear)
[2021-04-09 15:10] LABS: Bacteria/HPF None Seen HPF (None Seen); RBC/HPF 0-3 HPF (0-3); Squamous Epithelial 0-3 HPF (0-3); WBC/HPF 0-3 HPF (0-3)
[2021-04-09] MEDS ORDERED: chlordiazePOXIDE HCl 25 MG CAP ONE (15:42)
[2021-04-09] MEDS ORDERED: Thiamine 100 MG TAB ONE (15:42)
[2021-04-09 16:45] LABS: SARS-CoV-2 NAA Rapid Test Not Detected (NotDetected)
[2021-04-09] MEDS ORDERED: Aspirin 325 MG TAB ONE (17:56)
[2021-04-09] MEDS ORDERED: Acetaminophen 500 MG TAB ONE (18:03)
== END 2021-04-09 23:56 ==
LOC: ERS 12:28
DX: R55 Syncope and collapse (principal); F10.10 Alcohol abuse, uncomplicated; E78.00 Pure hypercholesterolemia, unspecified; E11.9 Type 2 diabetes mellitus without complications; I10 Essential (primary) hypertension; F17.210 Nicotine dependence, cigarettes, uncomplicated; Z79.899 Other long term (current) drug therapy; Z79.4 Long term (current) use of insulin; Z79.82 Long term (current) use of aspirin
CPT/HCPCS: 36415; 70450; 71045; 80053; 81003; 82140; 83690; 84484; 85025; 93005; U0002; U0005

== ENCOUNTER 2021-10-09 21:46 | Emergency (ER) | payer OTHER ==
[2021-10-09 22:31] LABS: #Basophils 0.1 thou/uL (0.0-0.2); #Eosinphils 0.4 thou/uL (0.0-0.7); #Lymphocytes 2.5 thou/uL (1.20-3.40); #Monocytes 0.4 thou/uL (0.11-0.59); #Neutrophils 4.7 thou/uL (1.40-6.50); %Eosinophils 5.1 % (0.0-10.0); %Lymphocytes 31.3 % (21.0-51.0); %Monocytes 4.7 % (0.0-10.0); %Neutrophils 57.9 % (42.0-75.0); Hemoglobin 14.5 g/dL (14.0-18.0); Mean Corpuscular Hemoglobin 35.9 pg (27.0-31.0); Mean Platelet Volume 6.5 fL (7.4-10.4); Platelet Count 274 thou/uL (130-400); RBC Distribution Width 12.2 % (11.5-14.5); Red Blood Cell (RBC) Count 4.03 mill/uL (4.70-6.10); White Blood Cell (WBC) Count 8.1 thou/uL (4.8-10.8)
[2021-10-09 22:45] LABS: INR-International Normal Ratio 0.9; PTT 30.5 sec (22.9-36.1); Prothrombin Time 12.6 sec (12.0-14.7)
[2021-10-09 22:53] LABS: Acetaminophen Less than 6.0 mcg/mL (10.0-30.0); Alcohol 229 mg/dL (Less than 10); CK (CPK) 84 U/L (30-200); Salicylate Less than 8.0 mg/dL (15.0-30.0)
[2021-10-09 23:25] LABS: Bilirubin Negative (Negative); Blood, Urine Negative (Negative); Clarity Clear (Clear); Glucose, Urine (Dipstick) Normal (Negative); Ketone, Urine Negative (Negative); Leukocyte Negative Leu/uL (Negative); Nitrite Negative (Negative); Protein, Urine (Dipstick) Negative (Neg-Trace); Specific Gravity, Urine 1.008 (1.002-1.036); Urobilinogen Normal mg/dL (Less than 2); pH, Urine 5.5 (5.0-9.0)
[2021-10-10 00:40] LABS: ALT (SGPT) 43 U/L (8-55); AST (SGOT) 41 U/L (5-34); Albumin 4.5 g/dL (3.4-4.8); Alkaline Phosphatase 91 U/L (40-110); Anion Gap 15 mmol/L (10-20); BUN (Urea Nitrogen) 10 mg/dL (8.4-25.7); Bilirubin, Total 0.4 mg/dL (0.2-1.2); Calc. Creatinine Clearance 0 mL/min (70-130); Calcium 10.2 mg/dL (7.8-10.44); Carbon Dioxide 25 mmol/L (23-31); Chloride 102 mmol/L (98-107); Globulin 3.5 g/dL (2.4-3.5); Glucose 114 mg/dL (80-115); Magnesium 1.8 mg/dL (1.6-2.6); Potassium 3.8 mmol/L (3.5-5.1); Sodium 138 mmol/L (136-145)
[2021-10-10 02:00] LABS: Amphetamine Not Detected (NotDetected); Barbiturates Screen Not Detected (NotDetected); Benzodiazepine Screen Not Detected (NotDetected); Cocaine Metabolite Screen Not Detected (NotDetected); Methadone Not Detected (NotDetected); Methamphetamine Not Detected (NotDetected); Opiate Screen Not Detected (NotDetected); Oxycodone Screen Not Detected (NotDetected); Phencyclidine (PCP) Not Detected (NotDetected); THC/Cannabinoid Screen Not Detected (NotDetected); Tricyclic Screen Not Detected (NotDetected)
== END 2021-10-10 00:56 | disposition home or self-care (01) ==
LOC: ERS 21:46
DX: F10.129 Alcohol abuse with intoxication, unspecified (principal); Y90.8 Blood alcohol level of 240 mg/100 ml or more; I10 Essential (primary) hypertension; E11.9 Type 2 diabetes mellitus without complications; J44.9 Chronic obstructive pulmonary disease, unspecified; E78.00 Pure hypercholesterolemia, unspecified; F17.210 Nicotine dependence, cigarettes, uncomplicated; Z79.84 Long term (current) use of oral hypoglycemic drugs; Z79.82 Long term (current) use of aspirin; Z79.899 Other long term (current) drug therapy
CPT/HCPCS: 36415; 36416; 70450; 71045; 80053; 80306; 80307; 81003; 82140; 82550; 83735; 84443; 84484; 85025; 85610; 85730; 93005

== ENCOUNTER 2021-12-10 17:59 | Emergency (ER) | payer OTHER ==
[2021-12-10] MEDS ORDERED: Thiamine HCl 200 MG/2 ML VIAL SLOW IVP SCH (18:30)
[2021-12-10] MEDS ORDERED: Folic Acid 1 MG, Multivitamins, Adult 10 ML in Dextrose 5 %-0.45 % NaCl 1,000 ML IV SCH (18:30)
[2021-12-10 18:36] LABS: #Eosinphils 0.1 thou/uL (0.0-0.7); #Lymphocytes 2.7 thou/uL (1.20-3.40); #Monocytes 0.6 thou/uL (0.11-0.59); #Neutrophils 4.9 thou/uL (1.40-6.50); %Basophils 0.1 % (0.0-1.0); %Eosinophils 1.4 % (0.0-10.0); %Lymphocytes 32.2 % (21.0-51.0); %Monocytes 7.4 % (0.0-10.0); Hemoglobin 14.6 g/dL (14.0-18.0); Mean Corpuscular HGB CONC 33.9 g/dL (32.0-36.0); Mean Corpuscular Hemoglobin 34.8 pg (27.0-31.0); Mean Platelet Volume 6.4 fL (7.4-10.4); Platelet Count 271 thou/uL (130-400); White Blood Cell (WBC) Count 8.4 thou/uL (4.8-10.8)
[2021-12-10 18:56] LABS: ALT (SGPT) 31 U/L (8-55); AST (SGOT) 50 U/L (5-34); Albumin 4.2 g/dL (3.4-4.8); Alkaline Phosphatase 67 U/L (40-110); Anion Gap 23 mmol/L (10-20); BUN (Urea Nitrogen) 7 mg/dL (8.4-25.7); Bilirubin, Total 0.4 mg/dL (0.2-1.2); Calc. Creatinine Clearance 0 mL/min (70-130); Calcium 9.7 mg/dL (7.8-10.44); Carbon Dioxide 17 mmol/L (23-31); Chloride 101 mmol/L (98-107); Globulin 2.9 g/dL (2.4-3.5); Glucose 96 mg/dL (80-115); Lipase 31 U/L (8-78); Potassium 3.3 mmol/L (3.5-5.1); Protein, Total 7.1 g/dL (5.8-8.1); Sodium 138 mmol/L (136-145)
[2021-12-10] MEDS ORDERED: Lorazepam 2 MG/ML VIAL ONE (20:11)
[2021-12-10 22:48] LABS: SARS-CoV-2 NAA Rapid Test Not Detected (NotDetected)
[2021-12-10] MEDS ORDERED: Lorazepam 1 MG TAB ONE (23:55)
== END 2021-12-11 02:40 ==
LOC: ERS 17:59
DX: F10.239 Alcohol dependence with withdrawal, unspecified (principal); M25.532 Pain in left wrist; M79.671 Pain in right foot; F17.210 Nicotine dependence, cigarettes, uncomplicated; J44.9 Chronic obstructive pulmonary disease, unspecified; I10 Essential (primary) hypertension; E11.9 Type 2 diabetes mellitus without complications; W19.XXXA Unspecified fall, initial encounter
CPT/HCPCS: 36415; 70450; 72125; 80053; 80307; 83690; 84484; 85025; 93005; 96365; 96366; 96375; J2060; J3411; J7042; U0002

== ENCOUNTER 2022-03-01 09:32 | Emergency (ER) | payer OTHER ==
[2022-03-01 09:57] LABS: #Basophils 0.1 thou/uL (0.0-0.2); #Eosinphils 0.1 thou/uL (0.0-0.7); #Lymphocytes 3.2 thou/uL (1.20-3.40); #Monocytes 0.5 thou/uL (0.11-0.59); #Neutrophils 6.5 thou/uL (1.40-6.50); %Basophils 0.6 % (0.0-1.0); %Eosinophils 0.7 % (0.0-10.0); %Lymphocytes 30.6 % (21.0-51.0); %Monocytes 4.8 % (0.0-10.0); %Neutrophils 63.3 % (42.0-75.0); Mean Corpuscular HGB CONC 32.6 g/dL (32.0-36.0); Mean Corpuscular Hemoglobin 32.9 pg (27.0-31.0); Mean Platelet Volume 6.4 fL (7.4-10.4); Platelet Count 295 thou/uL (130-400); RBC Distribution Width 12.2 % (11.5-14.5); Red Blood Cell (RBC) Count 4.27 mill/uL (4.70-6.10); White Blood Cell (WBC) Count 10.3 thou/uL (4.8-10.8)
[2022-03-01] MEDS ORDERED: Ketorolac Tromethamine 30 MG/ML VIAL ONE (10:13)
[2022-03-01] MEDS ORDERED: Morphine 4 MG/ML VIAL ONE (10:13)
[2022-03-01 10:19] LABS: ALT (SGPT) 32 U/L (8-55); AST (SGOT) 31 U/L (5-34); Albumin 4.3 g/dL (3.4-4.8); Alkaline Phosphatase 78 U/L (40-110); Anion Gap 16 mmol/L (10-20); BUN (Urea Nitrogen) 11 mg/dL (8.4-25.7); Bilirubin, Total 0.6 mg/dL (0.2-1.2); Calc. Creatinine Clearance 0 mL/min (70-130); Calcium 9.8 mg/dL (7.8-10.44); Carbon Dioxide 22 mmol/L (23-31); Chloride 104 mmol/L (98-107); Globulin 3.3 g/dL (2.4-3.5); Glucose 141 mg/dL (80-115); Potassium 4.3 mmol/L (3.5-5.1); Protein, Total 7.6 g/dL (5.8-8.1); Sodium 138 mmol/L (136-145)
== END 2022-03-01 13:17 | disposition home or self-care (01) ==
LOC: ERS 09:32
DX: S70.02XA Contusion of left hip, initial encounter (principal); J44.9 Chronic obstructive pulmonary disease, unspecified; E11.9 Type 2 diabetes mellitus without complications; E78.5 Hyperlipidemia, unspecified; E78.00 Pure hypercholesterolemia, unspecified; I10 Essential (primary) hypertension; F17.210 Nicotine dependence, cigarettes, uncomplicated; Z79.84 Long term (current) use of oral hypoglycemic drugs; Z79.82 Long term (current) use of aspirin; Z79.4 Long term (current) use of insulin; Z79.899 Other long term (current) drug therapy; W01.0XXA Fall on same level from slipping, tripping and stumbling without subsequent striking against object, initial encounter
CPT/HCPCS: 36415; 71045; 72170; 72192; 80053; 85025; 93005; 96374; 96375; J1885; J2270

== ENCOUNTER 2022-04-03 09:19 | Emergency (ER) | payer OTHER ==
[2022-04-03 10:14] LABS: #Lymphocytes 1.4 thou/uL (1.20-3.40); #Monocytes 0.4 thou/uL (0.11-0.59); #Neutrophils 6.5 thou/uL (1.40-6.50); %Basophils 0.5 % (0.0-1.0); %Eosinophils 0.5 % (0.0-10.0); %Lymphocytes 17.1 % (21.0-51.0); %Monocytes 4.4 % (0.0-10.0); %Neutrophils 77.5 % (42.0-75.0); Hemoglobin 14.6 g/dL (14.0-18.0); Mean Corpuscular HGB CONC 32.9 g/dL (32.0-36.0); Mean Platelet Volume 6.4 fL (7.4-10.4); Platelet Count 247 thou/uL (130-400); RBC Distribution Width 12.8 % (11.5-14.5); Red Blood Cell (RBC) Count 4.44 mill/uL (4.70-6.10); White Blood Cell (WBC) Count 8.4 thou/uL (4.8-10.8)
[2022-04-03 10:48] LABS: ALT (SGPT) 25 U/L (8-55); AST (SGOT) 31 U/L (5-34); Albumin 4.2 g/dL (3.4-4.8); Alkaline Phosphatase 56 U/L (40-110); Anion Gap 13 mmol/L (10-20); BUN (Urea Nitrogen) 9 mg/dL (8.4-25.7); Bilirubin, Total 0.6 mg/dL (0.2-1.2); CK (CPK) 83 U/L (30-200); Calc. Creatinine Clearance 0 mL/min (70-130); Calcium 9.9 mg/dL (7.8-10.44); Carbon Dioxide 28 mmol/L (23-31); Chloride 100 mmol/L (98-107); Globulin 3.2 g/dL (2.4-3.5); Potassium 3.9 mmol/L (3.5-5.1); Protein, Total 7.4 g/dL (5.8-8.1); Sodium 137 mmol/L (136-145)
[2022-04-03 10:54] LABS: Glucose 48 mg/dL (80-115)
[2022-04-03] MEDS ORDERED: Fentanyl 100 MCG/2 ML VIAL ONE (11:28)
[2022-04-03] MEDS ORDERED: Lidocaine Viscous Sol 2% 15 ml UD Cup ONE ×2 (12:52→12:54)
[2022-04-03] MEDS ORDERED: Mag-Al 1200 mg/1200 mg/30 ML UDCUP ONE ×2 (12:52→12:54)
== END 2022-04-03 14:19 | disposition home or self-care (01) ==
LOC: ERS 09:19
DX: K29.70 Gastritis, unspecified, without bleeding (principal); R94.31 Abnormal electrocardiogram [ECG] [EKG]; I10 Essential (primary) hypertension; E11.9 Type 2 diabetes mellitus without complications; E78.5 Hyperlipidemia, unspecified; E78.00 Pure hypercholesterolemia, unspecified; J44.9 Chronic obstructive pulmonary disease, unspecified; F17.210 Nicotine dependence, cigarettes, uncomplicated; D49.0 Neoplasm of unspecified behavior of digestive system
CPT/HCPCS: 36415; 71275; 74174; 80053; 82550; 84484; 85025; 93005; 96374; 96375; J3010

== ENCOUNTER 2022-04-04 11:41 | Emergency (ER) | payer OTHER ==
[~2022-04-04 11:41] MED LIST: GASTROGRAFIN 30 ML BOT ONE; Iopamidol-370 76% 500 ML 1 ML ONE
[2022-04-04] MEDS ORDERED: Metoclopramide HCl 10 MG/2 ML VIAL ONE (12:26)
[2022-04-04 12:35] LABS: #Basophils 0.1 thou/uL (0.0-0.2); #Lymphocytes 1.9 thou/uL (1.20-3.40); #Monocytes 0.4 thou/uL (0.11-0.59); #Neutrophils 5.3 thou/uL (1.40-6.50); %Basophils 0.7 % (0.0-1.0); %Eosinophils 0.6 % (0.0-10.0); %Lymphocytes 24.3 % (21.0-51.0); %Monocytes 4.7 % (0.0-10.0); %Neutrophils 69.7 % (42.0-75.0); Hemoglobin 14.6 g/dL (14.0-18.0); Mean Corpuscular HGB CONC 33.7 g/dL (32.0-36.0); Mean Corpuscular Hemoglobin 33.7 pg (27.0-31.0); Mean Corpuscular Volume 99.8 fL (78.0-98.0); Mean Platelet Volume 7.2 fL (7.4-10.4); Platelet Count 137 thou/uL (130-400); RBC Distribution Width 12.9 % (11.5-14.5); Red Blood Cell (RBC) Count 4.33 mill/uL (4.70-6.10); White Blood Cell (WBC) Count 7.6 thou/uL (4.8-10.8)
[2022-04-04 12:59] LABS: ALT (SGPT) 20 U/L (8-55); AST (SGOT) 25 U/L (5-34); Albumin 4.2 g/dL (3.4-4.8); Alkaline Phosphatase 65 U/L (40-110); Anion Gap 17 mmol/L (10-20); BUN (Urea Nitrogen) 13 mg/dL (8.4-25.7); Bilirubin, Total 0.8 mg/dL (0.2-1.2); Calc. Creatinine Clearance 0 mL/min (70-130); Calcium 9.5 mg/dL (7.8-10.44); Carbon Dioxide 22 mmol/L (23-31); Chloride 97 mmol/L (98-107); Globulin 3.3 g/dL (2.4-3.5); Glucose 373 mg/dL (80-115); Lipase 27 U/L (8-78); Potassium 4.2 mmol/L (3.5-5.1); Protein, Total 7.5 g/dL (5.8-8.1); Sodium 132 mmol/L (136-145)
[2022-04-04] MEDS ORDERED: Piperacillin/Tazobactam 3.375 GM VIAL ONE (14:03)
[2022-04-04] MEDS ORDERED: Morphine 4 MG/ML VIAL ONE ×2 (14:19→17:39)
[2022-04-04] MEDS ORDERED: Ondansetron PF 4 MG/2 ML Vial ONE (14:19)
[2022-04-04 14:33] LABS: Bacteria/HPF None Seen HPF (None Seen); Bilirubin Negative (Negative); Blood, Urine Negative (Negative); Clarity Clear (Clear); Glucose, Urine (Dipstick) Greater than 1000 mg/dL (Negative); Ketone, Urine 10 mg/dL (Negative); Leukocyte 75 Leu/uL (Negative); Nitrite Negative (Negative); Protein, Urine (Dipstick) Negative (Neg-Trace); RBC/HPF 0-3 HPF (0-3); Specific Gravity, Urine 1.024 (1.002-1.036); Squamous Epithelial None Seen HPF (0-3); Urobilinogen Normal mg/dL (Less than 2); WBC/HPF 21-50 HPF (0-3); pH, Urine 6.5 (5.0-9.0)
[2022-04-04 16:25] LABS: Lactic Acid 1.6 mmol/L (0.5-2.2)
[2022-04-04 19:51] LABS: SARS-CoV-2 NAA Rapid Test Not Detected (NotDetected)
== END 2022-04-04 20:20 | disposition short-term general hospital (02) ==
LOC: ERS 11:41
DX: E11.65 Type 2 diabetes mellitus with hyperglycemia (principal); E86.0 Dehydration; E11.10 Type 2 diabetes mellitus with ketoacidosis without coma; R13.10 Dysphagia, unspecified; Z20.822 Contact with and (suspected) exposure to COVID-19; E78.5 Hyperlipidemia, unspecified; I10 Essential (primary) hypertension; J44.9 Chronic obstructive pulmonary disease, unspecified; F17.210 Nicotine dependence, cigarettes, uncomplicated; Z79.899 Other long term (current) drug therapy
CPT/HCPCS: 36415; 36416; 74177; 80053; 81003; 81015; 82010; 83605; 83690; 84484; 85025; 87040; 87086; 93005; 96365; 96367; 96375; 96376; J2270; J2405; J2543; J2765; Q9963; Q9967; U0002

== ENCOUNTER 2022-05-06 19:21 | Emergency (ER) | payer OTHER ==
[~2022-05-06 19:21] MED LIST changes: -GASTROGRAFIN 30 ML BOT ONE
[2022-05-06] MEDS ORDERED: Mag-Al 1200 mg/1200 mg/30 ML UDCUP ONE (20:25)
[2022-05-06] MEDS ORDERED: Lidocaine Viscous Sol 2% 15 ml UD Cup ONE (20:25)
[2022-05-06 20:42] LABS: #Eosinphils 0.1 thou/uL (0.0-0.7); #Monocytes 0.4 thou/uL (0.11-0.59); #Neutrophils 3.9 thou/uL (1.40-6.50); %Basophils 0.3 % (0.0-1.0); %Eosinophils 1.5 % (0.0-10.0); %Monocytes 5.7 % (0.0-10.0); %Neutrophils 52.5 % (42.0-75.0); Hemoglobin 14.2 g/dL (14.0-18.0); Mean Corpuscular HGB CONC 33.4 g/dL (32.0-36.0); Mean Corpuscular Hemoglobin 33.2 pg (27.0-31.0); Mean Corpuscular Volume 99.5 fL (78.0-98.0); Mean Platelet Volume 6.8 fL (7.4-10.4); Platelet Count 251 thou/uL (130-400); RBC Distribution Width 12.4 % (11.5-14.5); Red Blood Cell (RBC) Count 4.27 mill/uL (4.70-6.10); White Blood Cell (WBC) Count 7.5 thou/uL (4.8-10.8)
[2022-05-06] MEDS ORDERED: Ondansetron PF 4 MG/2 ML Vial ONE (20:56)
[2022-05-06] MEDS ORDERED: Nitroglycerin 0.4 MG TAB 1 EACH ONE (20:56)
[2022-05-06 21:03] LABS: ALT (SGPT) 26 U/L (8-55); AST (SGOT) 27 U/L (5-34); Albumin 4.3 g/dL (3.4-4.8); Alkaline Phosphatase 65 U/L (40-110); Anion Gap 17 mmol/L (10-20); BUN (Urea Nitrogen) 13 mg/dL (8.4-25.7); Bilirubin, Total 0.3 mg/dL (0.2-1.2); Calc. Creatinine Clearance 0 mL/min (70-130); Calcium 9.8 mg/dL (7.8-10.44); Carbon Dioxide 22 mmol/L (23-31); Chloride 104 mmol/L (98-107); Estimated GFR 97; Globulin 3.1 g/dL (2.4-3.5); Glucose 103 mg/dL (80-115); Lipase 39 U/L (8-78); Potassium 3.8 mmol/L (3.5-5.1); Protein, Total 7.4 g/dL (5.8-8.1); Sodium 139 mmol/L (136-145)
[2022-05-06 21:27] LABS: Acetaminophen Less than 10.0 mcg/mL (10.0-30.0); Alcohol 194 mg/dL (Less than 10); Salicylate Less than 8.0 mg/dL (15.0-30.0)
== END 2022-05-06 22:41 | disposition home or self-care (01) ==
LOC: ERS 19:21
DX: K29.70 Gastritis, unspecified, without bleeding (principal); R10.13 Epigastric pain; E11.9 Type 2 diabetes mellitus without complications; I10 Essential (primary) hypertension; F17.210 Nicotine dependence, cigarettes, uncomplicated; Z79.899 Other long term (current) drug therapy; Z79.84 Long term (current) use of oral hypoglycemic drugs; Z79.4 Long term (current) use of insulin
CPT/HCPCS: 71045; 71275; 80053; 80307; 83690; 84484; 85025; 93005; 96374; J2405; Q9967

== ENCOUNTER 2022-05-12 11:13 | Emergency (ER) | payer OTHER ==
[2022-05-12] MEDS ORDERED: Lidocaine Viscous Sol 2% 15 ml UD Cup ONE (11:40)
[2022-05-12] MEDS ORDERED: Pantoprazole 40 MG VIAL ONE (11:40)
[2022-05-12] MEDS ORDERED: Mag-Al 1200 mg/1200 mg/30 ML UDCUP ONE (11:40)
[2022-05-12 11:50] LABS: #Lymphocytes 3.5 thou/uL (1.20-3.40); #Monocytes 0.5 thou/uL (0.11-0.59); #Neutrophils 6.3 thou/uL (1.40-6.50); %Basophils 0.1 % (0.0-1.0); %Eosinophils 0.3 % (0.0-10.0); %Lymphocytes 33.8 % (21.0-51.0); %Monocytes 4.4 % (0.0-10.0); %Neutrophils 61.4 % (42.0-75.0); Hemoglobin 14.4 g/dL (14.0-18.0); Mean Corpuscular HGB CONC 34.8 g/dL (32.0-36.0); Mean Corpuscular Hemoglobin 34.2 pg (27.0-31.0); Mean Corpuscular Volume 98.2 fL (78.0-98.0); Mean Platelet Volume 6.5 fL (7.4-10.4); Platelet Count 246 thou/uL (130-400); RBC Distribution Width 12.6 % (11.5-14.5); White Blood Cell (WBC) Count 10.3 thou/uL (4.8-10.8)
[2022-05-12 12:11] LABS: ALT (SGPT) 28 U/L (8-55); AST (SGOT) 29 U/L (5-34); Albumin 4.3 g/dL (3.4-4.8); Alkaline Phosphatase 66 U/L (40-110); Anion Gap 16 mmol/L (10-20); BUN (Urea Nitrogen) 12 mg/dL (8.4-25.7); Bilirubin, Total 0.6 mg/dL (0.2-1.2); CK (CPK) 100 U/L (30-200); Calc. Creatinine Clearance 0 mL/min (70-130); Calcium 9.9 mg/dL (7.8-10.44); Carbon Dioxide 25 mmol/L (23-31); Chloride 103 mmol/L (98-107); Estimated GFR 98; Globulin 2.9 g/dL (2.4-3.5); Glucose 72 mg/dL (80-115); Lipase 16 U/L (8-78); Protein, Total 7.2 g/dL (5.8-8.1); Sodium 140 mmol/L (136-145)
== END 2022-05-12 13:12 | disposition home or self-care (01) ==
LOC: ERS 11:13
DX: K20.90 Esophagitis, unspecified without bleeding (principal); K29.70 Gastritis, unspecified, without bleeding; E11.9 Type 2 diabetes mellitus without complications; E78.5 Hyperlipidemia, unspecified; I10 Essential (primary) hypertension; J44.9 Chronic obstructive pulmonary disease, unspecified; F17.210 Nicotine dependence, cigarettes, uncomplicated; Z79.899 Other long term (current) drug therapy; Z79.4 Long term (current) use of insulin
CPT/HCPCS: 36415; 71045; 80053; 82550; 83690; 84484; 85025; 93005; 96374; C9113

== ENCOUNTER 2022-06-18 18:48 | Observation (INO) | payer OTHER, SELFPAY ==
[2022-06-18 19:24] LABS: #Basophils 0.1 thou/uL (0.0-0.2); #Eosinphils 0.1 thou/uL (0.0-0.7); #Lymphocytes 3.7 thou/uL (1.20-3.40); #Monocytes 0.5 thou/uL (0.11-0.59); #Neutrophils 4.2 thou/uL (1.40-6.50); %Basophils 0.7 % (0.0-1.0); %Lymphocytes 43.2 % (21.0-51.0); %Monocytes 5.4 % (0.0-10.0); %Neutrophils 49.7 % (42.0-75.0); Hemoglobin 14.4 g/dL (14.0-18.0); Mean Corpuscular HGB CONC 34.7 g/dL (32.0-36.0); Mean Corpuscular Hemoglobin 34.5 pg (27.0-31.0); Mean Corpuscular Volume 99.4 fL (78.0-98.0); Mean Platelet Volume 6.5 fL (7.4-10.4); Platelet Count 259 thou/uL (130-400); RBC Distribution Width 12.9 % (11.5-14.5); Red Blood Cell (RBC) Count 4.17 mill/uL (4.70-6.10); White Blood Cell (WBC) Count 8.5 thou/uL (4.8-10.8)
[2022-06-18 19:52] LABS: ALT (SGPT) 25 U/L (8-55); AST (SGOT) 28 U/L (5-34); Albumin 4.4 g/dL (3.4-4.8); Alkaline Phosphatase 59 U/L (40-110); Anion Gap 17 mmol/L (10-20); BUN (Urea Nitrogen) 11 mg/dL (8.4-25.7); Bilirubin, Total 0.5 mg/dL (0.2-1.2); Calc. Creatinine Clearance 0 mL/min (70-130); Calcium 9.6 mg/dL (7.8-10.44); Carbon Dioxide 21 mmol/L (23-31); Chloride 103 mmol/L (98-107); Estimated GFR 100; Globulin 3.1 g/dL (2.4-3.5); Glucose 64 mg/dL (80-115); Lipase 34 U/L (8-78); Magnesium 1.8 mg/dL (1.6-2.6); Potassium 3.3 mmol/L (3.5-5.1); Protein, Total 7.5 g/dL (5.8-8.1); Sodium 138 mmol/L (136-145)
[2022-06-18 21:41] LABS: Bacteria/HPF None Seen HPF (None Seen); Bilirubin Negative (Negative); Blood, Urine Negative (Negative); Clarity Clear (Clear); Glucose, Urine (Dipstick) 100 mg/dL (Negative); Ketone, Urine Negative (Negative); Leukocyte 75 Leu/uL (Negative); Nitrite Negative (Negative); Protein, Urine (Dipstick) Negative (Neg-Trace); RBC/HPF 0-3 HPF (0-3); Specific Gravity, Urine 1.008 (1.002-1.036); Squamous Epithelial None Seen HPF (0-3); Urobilinogen Normal mg/dL (Less than 2)
[2022-06-18 22:26] LABS: Lactic Acid 3.2 mmol/L (0.5-2.2)
[2022-06-18] MEDS ORDERED: cefTRIAXone\\ROCEPHIN 1 GM VIAL ONE (23:25)
[2022-06-19] MEDS ORDERED: Potassium Chloride 20 MEQ TAB ONE (00:11)
[2022-06-19] MEDS ORDERED: Sodium Chloride 0.9% 1,000 ML IV SCH (00:15)
[2022-06-19] MEDS ORDERED: Ondansetron PF 4 MG/2 ML Vial IVP PRN (01:23)
[2022-06-19] MEDS ORDERED: Acetaminophen 325 MG TAB PO PRN (01:23)
[2022-06-19] MEDS ORDERED: Lorazepam 2 MG/ML VIAL IM PRN (01:24)
[2022-06-19] MEDS ORDERED: Dextrose 50% Abboject 50 ML SYRINGE SLOW IVP PRN ×2 (01:27→13:24)
[2022-06-19] MEDS ORDERED: Dextrose 5% in Water 1,000 ML IV PRN ×2 (01:27→13:24)
[2022-06-19] MEDS ORDERED: Electrolyte Replacement Protocol 1 EACH FS SCH (01:30)
[2022-06-19] MEDS ORDERED: Dextrose 5 %-0.45 % NaCl 1,000 ML IV SCH ×2 (01:30)
[2022-06-19 01:40] VITALS: BMI 22.8
[2022-06-19] MEDS: Thiamine HCl 200 MG/2 ML VIAL SLOW IVP SCH (01:50)
[2022-06-19 01:52] LABS: Hemoglobin 13.8 g/dL (14.0-18.0); Mean Corpuscular HGB CONC 34.2 g/dL (32.0-36.0); Mean Corpuscular Hemoglobin 34.4 pg (27.0-31.0); Mean Platelet Volume 6.5 fL (7.4-10.4); Platelet Count 227 thou/uL (130-400)
[2022-06-19] MEDS ORDERED: Potassium Chloride 20 MEQ TAB PO SCH ×2 (02:00→06:00)
[2022-06-19] MEDS ORDERED: Magnesium 2 GM/50 ML(in water) 2 GM in Premix Bag 1 BAG IVPB SCH (02:00)
[2022-06-19 02:15] LABS: Lactic Acid 2.3 mmol/L (0.5-2.2)
[2022-06-19 02:17] LABS: Phosphorus 3.1 mg/dL (2.3-4.7)
[2022-06-19 02:18] LABS: Anion Gap 16 mmol/L (10-20); BUN (Urea Nitrogen) 8 mg/dL (8.4-25.7); Calc. Creatinine Clearance 129 mL/min (70-130); Calcium 8.5 mg/dL (7.8-10.44); Carbon Dioxide 20 mmol/L (23-31); Chloride 108 mmol/L (98-107); Estimated GFR 106; Glucose 66 mg/dL (80-115); Magnesium 1.6 mg/dL (1.6-2.6); Potassium 3.7 mmol/L (3.5-5.1); Sodium 140 mmol/L (136-145)
[2022-06-19 02:34] LABS: Lymphocytes 55 % (21-51); MDiff Complete? YES; Macrocytosis MODERATE=16-30 cells (100X) (0-5/hpf); Monocytes 7 % (0-10); Neutrophil 36 % (42-75); Ovalocytes SLIGHT = 2-5 cells (100X) (0-1/hpf); Platelet Morphology Comment Appears Adequate; Reactive Lymphocytes 2 % (0-10)
[2022-06-19 02:38] LABS: Amphetamine Not Detected (NotDetected); Barbiturates Screen Not Detected (NotDetected); Benzodiazepine Screen Not Detected (NotDetected); Cocaine Metabolite Screen Not Detected (NotDetected); Methadone Not Detected (NotDetected); Methamphetamine Not Detected (NotDetected); Opiate Screen Not Detected (NotDetected); Oxycodone Screen Not Detected (NotDetected); Phencyclidine (PCP) Not Detected (NotDetected); THC/Cannabinoid Screen Not Detected (NotDetected); Tricyclic Screen Not Detected (NotDetected)
[2022-06-19 05:13] LABS: Hemoglobin A1c 6.1 % (4.0-6.0)
[2022-06-19] MEDS ORDERED: Non-Formulary Item 1 EACH (Omeprazole [Omeprazole] 40 MG Capsule.Dr) PO SCH (09:00)
[2022-06-19] MEDS: Aspirin 81 mg Enteric Coated Tablet PO SCH (09:31)
[2022-06-19] MEDS: Lorazepam 1 MG TAB PO PRN ×2 (09:31→14:03)
[2022-06-19] MEDS: Multivit, Therapeutic 1 TAB PO SCH (09:31)
[2022-06-19] MEDS: Folic Acid 1 MG TAB PO SCH (09:31)
[2022-06-19] MEDS: Amlodipine 10 MG TAB PO SCH (09:31)
[2022-06-19] MEDS: Metoprolol Tartrate 25 MG TAB PO SCH (09:31)
[2022-06-19] MEDS ORDERED: HumaLOG 300 UNITS/3 ML VIAL SC PRN (13:24)
[2022-06-19] MEDS: HumaLOG 300 UNITS/3 ML VIAL SC PRN ×2 (13:56→17:50)
[2022-06-19] MEDS ORDERED: Atorvastatin Calcium 40 MG TAB PO SCH (21:00)
[2022-06-19] MEDS ORDERED: traZODone HCl 50 MG TAB PO SCH (21:00)
[2022-06-19] MEDS: Ipratropium Bromide 0.06% Nasal Inhaler 15ml EA NARE SCH (21:46)
[2022-06-19] MEDS ORDERED: cefTRIAXone\\ROCEPHIN 1 GM in Sodium Chloride 0.9% 100 ML IVPB SCH (23:00)
[2022-06-20] MEDS ORDERED: Lorazepam 1 MG TAB PO PRN (01:24)
[2022-06-20] MEDS: Thiamine HCl 200 MG/2 ML VIAL SLOW IVP SCH ×2 (02:43→09:22)
[2022-06-20 04:47] LABS: #Eosinphils 0.1 thou/uL (0.0-0.7); #Monocytes 0.4 thou/uL (0.11-0.59); #Neutrophils 3.8 thou/uL (1.40-6.50); %Basophils 0.3 % (0.0-1.0); %Eosinophils 1.3 % (0.0-10.0); %Monocytes 6.4 % (0.0-10.0); %Neutrophils 60.1 % (42.0-75.0); Hemoglobin 12.6 g/dL (14.0-18.0); Mean Corpuscular Hemoglobin 33.2 pg (27.0-31.0); Mean Platelet Volume 6.8 fL (7.4-10.4); Platelet Count 207 thou/uL (130-400); RBC Distribution Width 12.8 % (11.5-14.5); Red Blood Cell (RBC) Count 3.79 mill/uL (4.70-6.10); White Blood Cell (WBC) Count 6.3 thou/uL (4.8-10.8)
[2022-06-20 05:08] LABS: Anion Gap 12 mmol/L (10-20); BUN (Urea Nitrogen) 7 mg/dL (8.4-25.7); Calc. Creatinine Clearance 110 mL/min (70-130); Calcium 8.5 mg/dL (7.8-10.44); Carbon Dioxide 24 mmol/L (23-31); Chloride 107 mmol/L (98-107); Estimated GFR 101; Glucose 133 mg/dL (80-115); Magnesium 1.9 mg/dL (1.6-2.6); Sodium 139 mmol/L (136-145)
[2022-06-20] MEDS ORDERED: Magnesium 2 GM/50 ML(in water) 2 GM in Premix Bag 1 BAG IVPB SCH (08:00)
[2022-06-20] MEDS: Amlodipine 10 MG TAB PO SCH (09:21)
[2022-06-20] MEDS: Multivit, Therapeutic 1 TAB PO SCH (09:21)
[2022-06-20] MEDS: Aspirin 81 mg Enteric Coated Tablet PO SCH (09:21)
[2022-06-20] MEDS: Folic Acid 1 MG TAB PO SCH (09:21)
[2022-06-20] MEDS: Metoprolol Tartrate 25 MG TAB PO SCH (09:21)
[2022-06-20] MEDS: Ipratropium Bromide 0.06% Nasal Inhaler 15ml EA NARE SCH (09:22)
[2022-06-20] MEDS: HumaLOG 300 UNITS/3 ML VIAL SC PRN (11:23)
[2022-06-20 12:35] VITALS: BP 138/63; TEMP 97.8
[2022-06-21] MEDS ORDERED: Lorazepam 1 MG TAB PO PRN (01:24)
[2022-06-22] MEDS ORDERED: Lorazepam 0.5 MG TAB PO PRN (01:24)
[2022-06-22] MEDS ORDERED: Thiamine 100 MG TAB PO SCH (09:00)
== END 2022-06-20 13:45 | disposition home or self-care (01) ==
LOC: ERS 18:48 → 2NO 06-19 00:04
PROVIDERS: ADMIT Family Medicine; ATTEND Family Medicine
DX: G93.41 Metabolic encephalopathy (principal); F10.10 Alcohol abuse, uncomplicated; K74.60 Unspecified cirrhosis of liver; E11.10 Type 2 diabetes mellitus with ketoacidosis without coma; E11.649 Type 2 diabetes mellitus with hypoglycemia without coma; E87.6 Hypokalemia; J44.9 Chronic obstructive pulmonary disease, unspecified; I10 Essential (primary) hypertension; E78.5 Hyperlipidemia, unspecified; F17.210 Nicotine dependence, cigarettes, uncomplicated; Z85.05 Personal history of malignant neoplasm of liver; Z79.4 Long term (current) use of insulin; Z79.84 Long term (current) use of oral hypoglycemic drugs; Z79.899 Other long term (current) drug therapy; Z88.1 Allergy status to other antibiotic agents; Z88.5 Allergy status to narcotic agent; Z20.822 Contact with and (suspected) exposure to COVID-19; Y90.7 Blood alcohol level of 200-239 mg/100 ml
CPT/HCPCS: 36415; 36416; 70450; 71045; 80048; 80053; 80306; 80307; 81003; 81015; 82248; 83036; 83605; 83690; 83735; 83880; 84100; 84443; 84484; 85025; 85379; 87040; 87086; 93005; 94640; 94760; 96361; 96374; 96375; 96376; G0378; J0696; J1815; J2405; J3411; J3475; J3490; J7042; J7620; U0003; U0005

== ENCOUNTER 2022-06-27 07:58 | Emergency (ER) | payer OTHER ==
[2022-06-27 08:45] LABS: Bilirubin Negative (Negative); Blood, Urine Negative (Negative); Clarity Clear (Clear); Glucose, Urine (Dipstick) Normal (Negative); Ketone, Urine Trace mg/dL (Negative); Leukocyte 25 Leu/uL (Negative); Nitrite 1+ (Negative); Protein, Urine (Dipstick) 20 mg/dL (Neg-Trace); RBC/HPF 0-3 HPF (0-3); Specific Gravity, Urine 1.014 (1.002-1.036); Squamous Epithelial 0-3 HPF (0-3); Urobilinogen Normal mg/dL (Less than 2); pH, Urine 5.5 (5.0-9.0)
[2022-06-27 08:46] LABS: Bacteria/HPF 2+ HPF (None Seen)
[2022-06-27 09:19] LABS: #Monocytes 0.4 thou/uL (0.11-0.59); #Neutrophils 3.2 thou/uL (1.40-6.50); %Eosinophils 0.1 % (0.0-10.0); %Lymphocytes 21.3 % (21.0-51.0); %Monocytes 8.4 % (0.0-10.0); %Neutrophils 70.3 % (42.0-75.0); Hemoglobin 14.1 g/dL (14.0-18.0); Mean Corpuscular HGB CONC 33.5 g/dL (32.0-36.0); Mean Corpuscular Hemoglobin 33.4 pg (27.0-31.0); Mean Corpuscular Volume 99.6 fL (78.0-98.0); Mean Platelet Volume 7.3 fL (7.4-10.4); Platelet Count 202 thou/uL (130-400); Red Blood Cell (RBC) Count 4.23 mill/uL (4.70-6.10); White Blood Cell (WBC) Count 4.6 thou/uL (4.8-10.8)
[2022-06-27 09:25] LABS: ALT (SGPT) 39 U/L (8-55); AST (SGOT) 59 U/L (5-34); Albumin 4.2 g/dL (3.4-4.8); Alkaline Phosphatase 64 U/L (40-110); Anion Gap 20 mmol/L (10-20); BUN (Urea Nitrogen) 8 mg/dL (8.4-25.7); Bilirubin, Total 0.2 mg/dL (0.2-1.2); Calc. Creatinine Clearance 0 mL/min (70-130); Calcium 9.8 mg/dL (7.8-10.44); Carbon Dioxide 23 mmol/L (23-31); Chloride 98 mmol/L (98-107); Estimated GFR 100; Globulin 3.2 g/dL (2.4-3.5); Glucose 141 mg/dL (80-115); Magnesium 1.5 mg/dL (1.6-2.6); Potassium 4.1 mmol/L (3.5-5.1); Protein, Total 7.4 g/dL (5.8-8.1); Sodium 137 mmol/L (136-145)
[2022-06-27] MEDS ORDERED: Magnesium 2 GM/50 ML BAG (IN WATER) ONE (11:29)
== END 2022-06-27 12:42 | disposition home or self-care (01) ==
LOC: ERS 07:58
DX: E83.42 Hypomagnesemia (principal); N39.0 Urinary tract infection, site not specified; E11.9 Type 2 diabetes mellitus without complications; E78.5 Hyperlipidemia, unspecified; I10 Essential (primary) hypertension; J44.9 Chronic obstructive pulmonary disease, unspecified; F17.210 Nicotine dependence, cigarettes, uncomplicated; Z79.82 Long term (current) use of aspirin; Z79.84 Long term (current) use of oral hypoglycemic drugs; Z79.899 Other long term (current) drug therapy
CPT/HCPCS: 36415; 36416; 71045; 80053; 81003; 81015; 83735; 84484; 85025; 96365; J3475

== ENCOUNTER 2022-07-09 19:49 | Emergency (ER) | payer OTHER ==
[2022-07-09 21:10] LABS: #Basophils 0.1 thou/uL (0.0-0.2); #Eosinphils 0.1 thou/uL (0.0-0.7); #Lymphocytes 3.3 thou/uL (1.20-3.40); #Monocytes 0.5 thou/uL (0.11-0.59); #Neutrophils 3.9 thou/uL (1.40-6.50); %Basophils 0.9 % (0.0-1.0); %Lymphocytes 42.5 % (21.0-51.0); %Monocytes 6.1 % (0.0-10.0); %Neutrophils 49.5 % (42.0-75.0); Hemoglobin 14.3 g/dL (14.0-18.0); Mean Corpuscular HGB CONC 34.7 g/dL (32.0-36.0); Mean Corpuscular Hemoglobin 34.7 pg (27.0-31.0); Mean Corpuscular Volume 99.9 fL (78.0-98.0); Mean Platelet Volume 6.5 fL (7.4-10.4); Platelet Count 267 thou/uL (130-400); RBC Distribution Width 13.1 % (11.5-14.5); Red Blood Cell (RBC) Count 4.12 mill/uL (4.70-6.10); White Blood Cell (WBC) Count 7.8 thou/uL (4.8-10.8)
[2022-07-09 21:32] LABS: ALT (SGPT) 30 U/L (8-55); AST (SGOT) 35 U/L (5-34); Acetaminophen Less than 10.0 mcg/mL (10.0-30.0); Albumin 4.2 g/dL (3.4-4.8); Alcohol 248 mg/dL (Less than 10); Alkaline Phosphatase 66 U/L (40-110); Anion Gap 20 mmol/L (10-20); BUN (Urea Nitrogen) 9 mg/dL (8.4-25.7); Bilirubin, Total 0.4 mg/dL (0.2-1.2); CK (CPK) 106 U/L (30-200); Calc. Creatinine Clearance 0 mL/min (70-130); Calcium 9.2 mg/dL (7.8-10.44); Carbon Dioxide 19 mmol/L (23-31); Chloride 104 mmol/L (98-107); Estimated GFR 101; Globulin 2.9 g/dL (2.4-3.5); Glucose 75 mg/dL (80-115); Potassium 3.8 mmol/L (3.5-5.1); Protein, Total 7.1 g/dL (5.8-8.1); Salicylate Less than 8.0 mg/dL (15.0-30.0); Sodium 139 mmol/L (136-145)
[2022-07-09 21:38] LABS: Prothrombin Time 13.4 sec (12.0-14.7)
[2022-07-09 21:39] LABS: PTT 33.1 sec (22.9-36.1)
[2022-07-09 21:55] LABS: Bilirubin Negative (Negative); Blood, Urine Negative (Negative); Clarity Clear (Clear); Glucose, Urine (Dipstick) Normal (Negative); Ketone, Urine Negative (Negative); Leukocyte Negative Leu/uL (Negative); Nitrite Negative (Negative); Protein, Urine (Dipstick) Negative (Neg-Trace); Specific Gravity, Urine 1.006 (1.002-1.036); Urobilinogen Normal mg/dL (Less than 2)
[2022-07-09 22:05] LABS: Amphetamine Not Detected (NotDetected); Barbiturates Screen Not Detected (NotDetected); Benzodiazepine Screen Detected (NotDetected); Cocaine Metabolite Screen Not Detected (NotDetected); Methadone Not Detected (NotDetected); Methamphetamine Not Detected (NotDetected); Opiate Screen Not Detected (NotDetected); Oxycodone Screen Not Detected (NotDetected); Phencyclidine (PCP) Not Detected (NotDetected); THC/Cannabinoid Screen Not Detected (NotDetected); Tricyclic Screen Not Detected (NotDetected)
== END 2022-07-09 23:19 | disposition home or self-care (01) ==
LOC: ERS 19:49
DX: F10.929 Alcohol use, unspecified with intoxication, unspecified (principal); E11.9 Type 2 diabetes mellitus without complications; E78.5 Hyperlipidemia, unspecified; I10 Essential (primary) hypertension; J44.9 Chronic obstructive pulmonary disease, unspecified; F17.210 Nicotine dependence, cigarettes, uncomplicated; Z79.82 Long term (current) use of aspirin; Z79.84 Long term (current) use of oral hypoglycemic drugs; Z79.899 Other long term (current) drug therapy
CPT/HCPCS: 36415; 70450; 71045; 72125; 80053; 80306; 80307; 81003; 82550; 84484; 85025; 85610; 85730; 93005

== ENCOUNTER 2022-09-18 19:01 | Emergency (ER) | payer OTHER | END 2022-09-18 21:05 | disposition home or self-care (01) | LOC: ERS 19:01 | DX: F10.129 Alcohol abuse with intoxication, unspecified (principal); I10 Essential (primary) hypertension; E78.5 Hyperlipidemia, unspecified; J44.9 Chronic obstructive pulmonary disease, unspecified; F17.210 Nicotine dependence, cigarettes, uncomplicated; W19.XXXA Unspecified fall, initial encounter | CPT/HCPCS: 70450; 72125; 72170 ==

== ENCOUNTER 2022-10-01 18:55 | Inpatient (IN) | payer OTHER ==
[2022-10-01] MEDS ORDERED: Dicyclomine 20 MG/2 ML VIAL ONE (19:20)
[2022-10-01 20:22] LABS: #Basophils 0.1 thou/uL (0.0-0.2); #Eosinphils 0.1 thou/uL (0.0-0.7); #Lymphocytes 2.1 thou/uL (1.20-3.40); #Monocytes 0.6 thou/uL (0.11-0.59); #Neutrophils 6.6 thou/uL (1.40-6.50); %Basophils 0.9 % (0.0-1.0); %Eosinophils 0.7 % (0.0-10.0); %Monocytes 6.8 % (0.0-10.0); %Neutrophils 69.6 % (42.0-75.0); Mean Corpuscular HGB CONC 34.5 g/dL (32.0-36.0); Mean Corpuscular Hemoglobin 35.2 pg (27.0-31.0); Mean Platelet Volume 7.1 fL (7.4-10.4); Platelet Count 251 10x3/uL (130-400); RBC Distribution Width 12.4 % (11.5-14.5); Red Blood Cell (RBC) Count 4.25 mill/uL (4.70-6.10); White Blood Cell (WBC) Count 9.4 10x3/uL (4.8-10.8)
[2022-10-01] MEDS ORDERED: Ondansetron PF 4 MG/2 ML Vial ONE (20:22)
[2022-10-01 20:27] LABS: Bilirubin Negative (Negative); Blood, Urine Negative (Negative); Clarity Clear (Clear); Glucose, Urine (Dipstick) Greater than 1000 mg/dL (Negative); Ketone, Urine 10 mg/dL (Negative); Leukocyte 75 Leu/uL (Negative); Nitrite Negative (Negative); Protein, Urine (Dipstick) Negative (Neg-Trace); Specific Gravity, Urine 1.029 (1.002-1.036); Urobilinogen Normal mg/dL (Less than 2); pH, Urine 5.5 (5.0-9.0)
[2022-10-01 20:29] LABS: Calcium Oxalate Crystals Rare HPF (None Seen)
[2022-10-01 20:37] LABS: ALT (SGPT) 34 U/L (8-55); AST (SGOT) 47 U/L (5-34); Albumin 4.3 g/dL (3.4-4.8); Alkaline Phosphatase 57 U/L (40-110); Anion Gap 18 mmol/L (10-20); BUN (Urea Nitrogen) 12 mg/dL (8.4-25.7); Bilirubin, Total 0.5 mg/dL (0.2-1.2); Calc. Creatinine Clearance 0 mL/min (70-130); Calcium 10.2 mg/dL (7.8-10.44); Carbon Dioxide 21 mmol/L (23-31); Chloride 101 mmol/L (98-107); Estimated GFR 98; Globulin 2.9 g/dL (2.4-3.5); Glucose 230 mg/dL (80-115); Lipase 35 U/L (8-78); Potassium 3.5 mmol/L (3.5-5.1); Protein, Total 7.2 g/dL (5.8-8.1); Sodium 136 mmol/L (136-145)
[2022-10-01] MEDS ORDERED: Cefepime 2 GM VIAL ONE (21:56)
[2022-10-01] MEDS ORDERED: Vancomycin 1 GM/200 ML (FROZEN) BAG ONE (23:38)
[2022-10-02] MEDS ORDERED: Dextrose 50% Abboject 50 ML SYRINGE SLOW IVP PRN (01:14)
[2022-10-02] MEDS ORDERED: HumaLOG 300 UNITS/3 ML VIAL SC PRN (01:14)
[2022-10-02] MEDS ORDERED: Ondansetron ODT 4 MG TAB PO PRN ×2 (01:14)
[2022-10-02] MEDS ORDERED: Ondansetron PF 4 MG/2 ML Vial IVP PRN (01:14)
[2022-10-02] MEDS ORDERED: Acetaminophen 650 MG Suppository PR PRN (01:14)
[2022-10-02] MEDS ORDERED: Acetaminophen 325 MG TAB PO PRN (01:14)
[2022-10-02] MEDS ORDERED: Lorazepam 2 MG/ML VIAL IM PRN (01:14)
[2022-10-02] MEDS ORDERED: Dextrose 5% in Water 1,000 ML IV PRN (01:14)
[2022-10-02] MEDS ORDERED: Lorazepam 1 MG TAB PO PRN (01:14)
[2022-10-02] MEDS ORDERED: Electrolyte Replacement Protocol 1 EACH FS SCH (01:15)
[2022-10-02] MEDS: Morphine 4 MG/ML VIAL SLOW IVP PRN ×2 (04:41→11:35)
[2022-10-02] MEDS: Thiamine HCl 200 MG/2 ML VIAL SLOW IVP SCH (04:41)
[2022-10-02] MEDS: metroNIDAZOLE 500 MG in Premix Bag 1 BAG IVPB SCH ×3 (04:43→20:42)
[2022-10-02] MEDS: Lorazepam 1 MG TAB PO SCH ×4 (04:44→20:42)
[2022-10-02] MEDS: Sodium Chloride 0.9% 1,000 ML IV SCH ×3 (04:45→20:43)
[2022-10-02 05:09] VITALS: BMI 25.1
[2022-10-02 05:12] LABS: Amphetamine Not Detected (NotDetected); Barbiturates Screen Not Detected (NotDetected); Benzodiazepine Screen Not Detected (NotDetected); Cocaine Metabolite Screen Not Detected (NotDetected); Methadone Not Detected (NotDetected); Methamphetamine Not Detected (NotDetected); Opiate Screen Not Detected (NotDetected); Oxycodone Screen Not Detected (NotDetected); Phencyclidine (PCP) Not Detected (NotDetected); THC/Cannabinoid Screen Not Detected (NotDetected); Tricyclic Screen Not Detected (NotDetected)
[2022-10-02 05:56] LABS: #Eosinphils 0.1 thou/uL (0.0-0.7); #Lymphocytes 2.1 thou/uL (1.20-3.40); #Monocytes 0.5 thou/uL (0.11-0.59); #Neutrophils 3.6 thou/uL (1.40-6.50); %Basophils 0.2 % (0.0-1.0); %Eosinophils 1.3 % (0.0-10.0); %Lymphocytes 33.9 % (21.0-51.0); %Monocytes 7.4 % (0.0-10.0); %Neutrophils 57.2 % (42.0-75.0); Hemoglobin 13.2 g/dL (14.0-18.0); Mean Corpuscular HGB CONC 33.8 g/dL (32.0-36.0); Mean Corpuscular Hemoglobin 34.8 pg (27.0-31.0); Mean Platelet Volume 7.1 fL (7.4-10.4); Platelet Count 212 10x3/uL (130-400); RBC Distribution Width 12.6 % (11.5-14.5); Red Blood Cell (RBC) Count 3.79 mill/uL (4.70-6.10); White Blood Cell (WBC) Count 6.2 10x3/uL (4.8-10.8)
[2022-10-02 06:20] LABS: Anion Gap 10 mmol/L (10-20); BUN (Urea Nitrogen) 8 mg/dL (8.4-25.7); Calc. Creatinine Clearance 133 mL/min (70-130); Calcium 8.5 mg/dL (7.8-10.44); Carbon Dioxide 28 mmol/L (23-31); Chloride 104 mmol/L (98-107); Estimated GFR 104; Glucose 167 mg/dL (80-115); Potassium 3.7 mmol/L (3.5-5.1); Sodium 138 mmol/L (136-145)
[2022-10-02] MEDS: cefTRIAXone\\ROCEPHIN 1 GM in Sodium Chloride 0.9% 100 ML IVPB SCH (08:36)
[2022-10-02] MEDS ORDERED: FLU VACC QS2022-23(65YR UP)/PF 240 MCG/0.7 ML SYRINGE IM ONE (09:00)
[2022-10-02] MEDS: Folic Acid 1 MG TAB PO SCH (09:32)
[2022-10-02] MEDS: Multivit, Therapeutic 1 TAB PO SCH (09:32)
[2022-10-02] MEDS ORDERED: hydrALAZINE 20 MG/ML VIAL SLOW IVP PRN (21:10)
[2022-10-03] MEDS: Thiamine HCl 200 MG/2 ML VIAL SLOW IVP SCH (01:12)
[2022-10-03] MEDS: Lorazepam 1 MG TAB PO SCH ×4 (01:12→19:34)
[2022-10-03] MEDS ORDERED: Lorazepam 1 MG TAB PO PRN (01:15)
[2022-10-03] MEDS ORDERED: Morphine 4 MG/ML VIAL SLOW IVP SCH (01:30)
[2022-10-03] MEDS: metroNIDAZOLE 500 MG in Premix Bag 1 BAG IVPB SCH ×3 (05:36→21:05)
[2022-10-03] MEDS: Sodium Chloride 0.9% 1,000 ML IV SCH ×2 (05:36→16:40)
[2022-10-03 05:58] LABS: #Basophils 0.1 thou/uL (0.0-0.2); #Eosinphils 0.1 thou/uL (0.0-0.7); #Lymphocytes 2.1 thou/uL (1.20-3.40); #Monocytes 0.4 thou/uL (0.11-0.59); #Neutrophils 4.3 thou/uL (1.40-6.50); %Basophils 1.4 % (0.0-1.0); %Eosinophils 1.4 % (0.0-10.0); %Lymphocytes 29.5 % (21.0-51.0); %Monocytes 6.2 % (0.0-10.0); %Neutrophils 61.5 % (42.0-75.0); Hemoglobin 13.8 g/dL (14.0-18.0); Mean Corpuscular HGB CONC 34.1 g/dL (32.0-36.0); Mean Corpuscular Hemoglobin 34.7 pg (27.0-31.0); Mean Platelet Volume 6.8 fL (7.4-10.4); Platelet Count 194 10x3/uL (130-400); RBC Distribution Width 12.2 % (11.5-14.5); Red Blood Cell (RBC) Count 3.97 mill/uL (4.70-6.10)
[2022-10-03 06:19] LABS: Anion Gap 14 mmol/L (10-20); BUN (Urea Nitrogen) 5 mg/dL (8.4-25.7); Calc. Creatinine Clearance 130 mL/min (70-130); Calcium 8.3 mg/dL (7.8-10.44); Carbon Dioxide 23 mmol/L (23-31); Chloride 102 mmol/L (98-107); Estimated GFR 103; Glucose 145 mg/dL (80-115); Potassium 3.8 mmol/L (3.5-5.1); Sodium 135 mmol/L (136-145)
[2022-10-03] MEDS: cefTRIAXone\\ROCEPHIN 1 GM in Sodium Chloride 0.9% 100 ML IVPB SCH (08:29)
[2022-10-03] MEDS: Multivit, Therapeutic 1 TAB PO SCH (08:30)
[2022-10-03] MEDS: Folic Acid 1 MG TAB PO SCH (08:30)
[2022-10-03] MEDS ORDERED: Polymyxin B Sulf/Trimethoprim 10 ML OPHTH DROPS EA EYE SCH (10:30)
[2022-10-03] MEDS ORDERED: Atropine Sulfate 1% Ophth Soln 5 ml Bottle R EYE SCH (10:30)
[2022-10-03] MEDS ORDERED: prednisoLONE 1% Ophth Susp 5 ml Bottle EA EYE SCH (10:45)
[2022-10-03] MEDS: Morphine 4 MG/ML VIAL SLOW IVP PRN ×3 (10:51→20:45)
[2022-10-03] MEDS: HumaLOG 300 UNITS/3 ML VIAL SC PRN (16:41)
[2022-10-03] MEDS: Dicyclomine 20 MG TAB PO SCH ×2 (16:41→20:47)
[2022-10-04] MEDS ORDERED: Lorazepam 1 MG TAB PO PRN (01:15)
[2022-10-04] MEDS: Lorazepam 1 MG TAB PO SCH (01:29)
[2022-10-04] MEDS: Lorazepam 0.5 MG TAB PO SCH ×4 (01:32→18:28)
[2022-10-04] MEDS: Thiamine HCl 200 MG/2 ML VIAL SLOW IVP SCH (01:32)
[2022-10-04 05:41] LABS: #Eosinphils 0.1 thou/uL (0.0-0.7); #Lymphocytes 1.5 thou/uL (1.20-3.40); #Monocytes 0.5 thou/uL (0.11-0.59); %Basophils 0.3 % (0.0-1.0); %Eosinophils 1.6 % (0.0-10.0); %Lymphocytes 24.5 % (21.0-51.0); %Monocytes 8.2 % (0.0-10.0); %Neutrophils 65.5 % (42.0-75.0); Hemoglobin 13.5 g/dL (14.0-18.0); Mean Corpuscular HGB CONC 33.4 g/dL (32.0-36.0); Mean Corpuscular Hemoglobin 34.2 pg (27.0-31.0); Mean Platelet Volume 6.6 fL (7.4-10.4); Platelet Count 191 10x3/uL (130-400); RBC Distribution Width 12.1 % (11.5-14.5); Red Blood Cell (RBC) Count 3.95 mill/uL (4.70-6.10); White Blood Cell (WBC) Count 6.1 10x3/uL (4.8-10.8)
[2022-10-04 06:02] LABS: Anion Gap 13 mmol/L (10-20); BUN (Urea Nitrogen) 4 mg/dL (8.4-25.7); Calc. Creatinine Clearance 130 mL/min (70-130); Calcium 8.6 mg/dL (7.8-10.44); Carbon Dioxide 23 mmol/L (23-31); Chloride 103 mmol/L (98-107); Estimated GFR 103; Glucose 171 mg/dL (80-115); Magnesium 1.5 mg/dL (1.6-2.6); Potassium 3.6 mmol/L (3.5-5.1); Sodium 135 mmol/L (136-145)
[2022-10-04] MEDS: metroNIDAZOLE 500 MG in Premix Bag 1 BAG IVPB SCH ×3 (06:08→21:20)
[2022-10-04] MEDS: HumaLOG 300 UNITS/3 ML VIAL SC PRN ×3 (06:09→16:14)
[2022-10-04] MEDS: Sodium Chloride 0.9% 1,000 ML IV SCH ×3 (06:10→21:24)
[2022-10-04] MEDS ORDERED: Magnesium 2 GM/50 ML(in water) 2 GM in Premix Bag 1 BAG IVPB SCH (06:15)
[2022-10-04] MEDS: Dicyclomine 20 MG TAB PO SCH ×4 (08:34→20:06)
[2022-10-04] MEDS: Folic Acid 1 MG TAB PO SCH (08:34)
[2022-10-04] MEDS: Multivit, Therapeutic 1 TAB PO SCH (08:34)
[2022-10-04] MEDS: Atropine Sulfate 1% Ophth Soln 5 ml Bottle R EYE SCH (08:35)
[2022-10-04] MEDS: prednisoLONE 1% Ophth Susp 5 ml Bottle EA EYE SCH (08:36)
[2022-10-04] MEDS: Polymyxin B Sulf/Trimethoprim 10 ML OPHTH DROPS EA EYE SCH (08:36)
[2022-10-04] MEDS: cefTRIAXone\\ROCEPHIN 1 GM in Sodium Chloride 0.9% 100 ML IVPB SCH (10:22)
[2022-10-04 11:21] LABS: Campy jejuni + coli by PCR Negative (Negative); STEC Shiga Toxin 1+2 Negative (Negative); Salmonella spp. by PCR Negative (Negative); Shigella spp + EIEC by PCR Negative (Negative)
[2022-10-04] MEDS: Morphine 4 MG/ML VIAL SLOW IVP PRN (20:04)
[2022-10-04] MEDS: glipiZIDE 10 MG TAB PO SCH (20:06)
[2022-10-04] MEDS ORDERED: Atorvastatin Calcium 40 MG TAB PO SCH (21:00)
[2022-10-05] MEDS: Lorazepam 0.5 MG TAB PO SCH (00:36)
[2022-10-05] MEDS ORDERED: Thiamine 100 MG TAB PO SCH ×2 (01:15→09:00)
[2022-10-05] MEDS ORDERED: Lorazepam 0.5 MG TAB PO PRN (01:15)
[2022-10-05] MEDS: Dicyclomine 20 MG TAB PO SCH ×2 (08:16→12:29)
[2022-10-05] MEDS: glipiZIDE 10 MG TAB PO SCH (08:16)
[2022-10-05] MEDS: Multivit, Therapeutic 1 TAB PO SCH (08:16)
[2022-10-05] MEDS: Polymyxin B Sulf/Trimethoprim 10 ML OPHTH DROPS EA EYE SCH (08:17)
[2022-10-05] MEDS: prednisoLONE 1% Ophth Susp 5 ml Bottle EA EYE SCH (08:17)
[2022-10-05] MEDS: Atropine Sulfate 1% Ophth Soln 5 ml Bottle R EYE SCH (08:17)
[2022-10-05] MEDS: metroNIDAZOLE 500 MG in Premix Bag 1 BAG IVPB SCH ×2 (08:17→13:59)
[2022-10-05] MEDS: Folic Acid 1 MG TAB PO SCH (08:17)
[2022-10-05] MEDS: Sodium Chloride 0.9% 1,000 ML IV SCH (08:21)
[2022-10-05] MEDS: Morphine 4 MG/ML VIAL SLOW IVP PRN (08:26)
[2022-10-05] MEDS ORDERED: Metoprolol Tartrate 25 MG TAB PO SCH (09:00)
[2022-10-05] MEDS ORDERED: Amlodipine 10 MG TAB PO SCH (09:00)
[2022-10-05] MEDS ORDERED: Aspirin 81 mg Enteric Coated Tablet PO SCH (09:00)
[2022-10-05 09:11] VITALS: BP 147/72; TEMP 98.4
[2022-10-05] MEDS: cefTRIAXone\\ROCEPHIN 1 GM in Sodium Chloride 0.9% 100 ML IVPB SCH (10:08)
[2022-10-05] MEDS: HumaLOG 300 UNITS/3 ML VIAL SC PRN (11:13)
== END 2022-10-05 15:00 | disposition home or self-care (01) | DRG 392 ==
LOC: ERS 18:55 → MSONC 10-02 00:11 → OBSVTOIN 10-03 16:44
PROVIDERS: ADMIT Internal Medicine; ATTEND Internal Medicine
DX: A09 Infectious gastroenteritis and colitis, unspecified (principal); K55.1 Chronic vascular disorders of intestine; Z20.822 Contact with and (suspected) exposure to COVID-19; E11.9 Type 2 diabetes mellitus without complications; J44.9 Chronic obstructive pulmonary disease, unspecified; F17.210 Nicotine dependence, cigarettes, uncomplicated; E27.8 Other specified disorders of adrenal gland; F10.10 Alcohol abuse, uncomplicated; Z88.8 Allergy status to other drugs, medicaments and biological substances; Z79.899 Other long term (current) drug therapy; Z90.49 Acquired absence of other specified parts of digestive tract; Z98.890 Other specified postprocedural states
CPT/HCPCS: 36415; 36416; 71045; 74177; 80048; 80053; 80306; 81003; 81015; 83605; 83630; 83690; 83735; 84484; 85025; 87040; 87077; 87086; 87186; 87324; 87449; 87505; 93005; 96361; 96365; 96366; 96367; 96372; 96375; 96376; G0378; J0692; J0696; J1815; J2270; J2405; J3370-JW; J3411; J3475; J3490; J7050; Q9967; U0003; U0005

== ENCOUNTER 2022-12-20 20:09 | Emergency (ER) | payer OTHER ==
[2022-12-20] MEDS ORDERED: Ondansetron PF 4 MG/2 ML Vial ONE (21:00)
[2022-12-20 21:20] LABS: #Basophils 0.1 thou/uL (0.0-0.2); #Eosinphils 0.1 thou/uL (0.0-0.7); #Lymphocytes 2.9 thou/uL (1.20-3.40); #Monocytes 0.4 thou/uL (0.11-0.59); #Neutrophils 2.9 thou/uL (1.40-6.50); %Basophils 1.3 % (0.0-1.0); %Eosinophils 1.9 % (0.0-10.0); %Monocytes 6.1 % (0.0-10.0); %Neutrophils 44.6 % (42.0-75.0); Hemoglobin 14.2 g/dL (14.0-18.0); Mean Corpuscular HGB CONC 35.1 g/dL (32.0-36.0); Mean Corpuscular Hemoglobin 35.7 pg (27.0-31.0); Mean Platelet Volume 6.8 fL (7.4-10.4); Platelet Count 253 10x3/uL (130-400); RBC Distribution Width 12.1 % (11.5-14.5); Red Blood Cell (RBC) Count 3.97 mill/uL (4.70-6.10); White Blood Cell (WBC) Count 6.4 10x3/uL (4.8-10.8)
[2022-12-20 21:32] LABS: Bilirubin Negative (Negative); Blood, Urine Negative (Negative); Clarity Clear (Clear); Glucose, Urine (Dipstick) Normal (Negative); Ketone, Urine Negative (Negative); Leukocyte 250 Leu/uL (Negative); Nitrite Negative (Negative); Protein, Urine (Dipstick) Negative (Neg-Trace); RBC/HPF 0-3 HPF (0-3); Specific Gravity, Urine 1.007 (1.002-1.036); Squamous Epithelial 0-3 HPF (0-3); Urobilinogen Normal mg/dL (Less than 2); pH, Urine 5.5 (5.0-9.0)
[2022-12-20 21:33] LABS: Acetaminophen Less than 10.0 mcg/mL (10.0-30.0); Alcohol 224 mg/dL (Less than 10); Salicylate Less than 8.0 mg/dL (15.0-30.0)
[2022-12-20 21:33] LABS: Bacteria/HPF Rare-Few HPF (None Seen)
[2022-12-20 21:36] LABS: Amphetamine Not Detected (NotDetected); Barbiturates Screen Not Detected (NotDetected); Benzodiazepine Screen Not Detected (NotDetected); Cocaine Metabolite Screen Not Detected (NotDetected); Methadone Not Detected (NotDetected); Methamphetamine Not Detected (NotDetected); Opiate Screen Not Detected (NotDetected); Oxycodone Screen Not Detected (NotDetected); Phencyclidine (PCP) Not Detected (NotDetected); THC/Cannabinoid Screen Not Detected (NotDetected); Tricyclic Screen Not Detected (NotDetected)
[2022-12-20 21:42] LABS: ALT (SGPT) 31 U/L (8-55); AST (SGOT) 38 U/L (5-34); Albumin 4.3 g/dL (3.4-4.8); Alkaline Phosphatase 54 U/L (40-110); Anion Gap 18 mmol/L (10-20); BUN (Urea Nitrogen) 8 mg/dL (8.4-25.7); Bilirubin, Total 0.4 mg/dL (0.2-1.2); Calc. Creatinine Clearance 0 mL/min (70-130); Calcium 9.3 mg/dL (7.8-10.44); Carbon Dioxide 21 mmol/L (23-31); Chloride 104 mmol/L (98-107); Estimated GFR 101; Globulin 2.6 g/dL (2.4-3.5); Glucose 94 mg/dL (80-115); Potassium 3.3 mmol/L (3.5-5.1); Protein, Total 6.9 g/dL (5.8-8.1); Sodium 140 mmol/L (136-145)
[2022-12-20 21:44] LABS: CK (CPK) 118 U/L (30-200)
== END 2022-12-20 22:31 | disposition home or self-care (01) ==
LOC: ERS 20:09 → ERHOLD 21:26 → UNDOADMIN 21:26
DX: F10.129 Alcohol abuse with intoxication, unspecified (principal); E11.9 Type 2 diabetes mellitus without complications; E78.5 Hyperlipidemia, unspecified; I10 Essential (primary) hypertension; F17.210 Nicotine dependence, cigarettes, uncomplicated; Y90.9 Presence of alcohol in blood, level not specified
CPT/HCPCS: 36415; 80053; 80306; 80307; 81003; 81015; 82550; 85025; 96365; 96375; J2405; J3411

== ENCOUNTER 2022-12-26 20:18 | Emergency (ER) | payer OTHER | END 2022-12-26 23:05 | disposition home or self-care (01) | LOC: ERS 20:18 | DX: F43.20 Adjustment disorder, unspecified (principal); E11.9 Type 2 diabetes mellitus without complications; E78.00 Pure hypercholesterolemia, unspecified; I10 Essential (primary) hypertension; J44.9 Chronic obstructive pulmonary disease, unspecified; F17.210 Nicotine dependence, cigarettes, uncomplicated | CPT/HCPCS: 93005 ==

== ENCOUNTER 2023-01-06 20:02 | Inpatient (IN) | payer OTHER ==
[~2023-01-06 20:02] MED LIST changes: +ISOVUE-370 76%-LOCM 1 ML ONE; -Iopamidol-370 76% 500 ML 1 ML ONE
[2023-01-06 20:55] LABS: #Basophils 0.2 thou/uL (0.0-0.2); #Eosinphils 0.1 thou/uL (0.0-0.7); #Lymphocytes 3.6 thou/uL (1.20-3.40); #Monocytes 0.5 thou/uL (0.11-0.59); #Neutrophils 3.3 thou/uL (1.40-6.50); %Basophils 2.1 % (0.0-1.0); %Lymphocytes 47.1 % (21.0-51.0); %Monocytes 6.3 % (0.0-10.0); %Neutrophils 43.5 % (42.0-75.0); Hemoglobin 14.5 g/dL (14.0-18.0); Mean Corpuscular HGB CONC 35.1 g/dL (32.0-36.0); Mean Corpuscular Hemoglobin 35.5 pg (27.0-31.0); Mean Platelet Volume 6.8 fL (7.4-10.4); Platelet Count 242 10x3/uL (130-400); RBC Distribution Width 12.1 % (11.5-14.5); Red Blood Cell (RBC) Count 4.07 mill/uL (4.70-6.10); White Blood Cell (WBC) Count 7.6 10x3/uL (4.8-10.8)
[2023-01-06 21:14] LABS: Acetaminophen Less than 10.0 mcg/mL (10.0-30.0); Alcohol 233 mg/dL (Less than 10); Salicylate Less than 8.0 mg/dL (15.0-30.0)
[2023-01-06 21:24] LABS: ALT (SGPT) 26 U/L (8-55); AST (SGOT) 28 U/L (5-34); Albumin 4.2 g/dL (3.4-4.8); Alcohol 233 mg/dL (Less than 10); Alkaline Phosphatase 58 U/L (40-110); Anion Gap 18 mmol/L (10-20); BUN (Urea Nitrogen) 9 mg/dL (8.4-25.7); Bilirubin, Total 0.4 mg/dL (0.2-1.2); Calc. Creatinine Clearance 0 mL/min (70-130); Calcium 9.2 mg/dL (7.8-10.44); Carbon Dioxide 21 mmol/L (23-31); Chloride 101 mmol/L (98-107); Estimated GFR 100; Glucose 96 mg/dL (80-115); Lipase 45 U/L (8-78); Potassium 3.3 mmol/L (3.5-5.1); Protein, Total 7.2 g/dL (5.8-8.1); Sodium 137 mmol/L (136-145)
[2023-01-06 21:49] LABS: Bacteria/HPF None Seen HPF (None Seen); Bilirubin Negative (Negative); Blood, Urine Negative (Negative); Clarity Clear (Clear); Glucose, Urine (Dipstick) Normal (Negative); Ketone, Urine Negative (Negative); Leukocyte 250 Leu/uL (Negative); Nitrite Negative (Negative); Protein, Urine (Dipstick) Negative (Neg-Trace); RBC/HPF 0-3 HPF (0-3); Specific Gravity, Urine 1.011 (1.002-1.036); Squamous Epithelial None Seen HPF (0-3); Urobilinogen Normal mg/dL (Less than 2)
[2023-01-06 21:56] LABS: Amphetamine Not Detected (NotDetected); Barbiturates Screen Not Detected (NotDetected); Benzodiazepine Screen Not Detected (NotDetected); Cocaine Metabolite Screen Not Detected (NotDetected); Methadone Not Detected (NotDetected); Methamphetamine Not Detected (NotDetected); Opiate Screen Not Detected (NotDetected); Oxycodone Screen Not Detected (NotDetected); Phencyclidine (PCP) Not Detected (NotDetected); THC/Cannabinoid Screen Not Detected (NotDetected); Tricyclic Screen Not Detected (NotDetected)
[2023-01-06 23:53] LABS: Lactic Acid 4.1 mmol/L (0.5-2.2)
[2023-01-07] MEDS ORDERED: Ondansetron ODT 4 MG TAB PO PRN (04:03)
[2023-01-07] MEDS ORDERED: Dextrose 5% in Water 1,000 ML IV PRN (04:03)
[2023-01-07] MEDS ORDERED: Dextrose 50% Abboject 50 ML SYRINGE SLOW IVP PRN (04:03)
[2023-01-07] MEDS ORDERED: Electrolyte Replacement Protocol 1 EACH FS SCH (04:15)
[2023-01-07] MEDS ORDERED: Piperacillin/Tazobactam 3.375 GM VIAL ONE (04:26)
[2023-01-07 05:03] LABS: Lactic Acid 3.4 mmol/L (0.5-2.2)
[2023-01-07 05:08] LABS: Magnesium 1.5 mg/dL (1.6-2.6); Phosphorus 3.2 mg/dL (2.3-4.7)
[2023-01-07] MEDS ORDERED: Guaifenesin DM 100-10/5 ML UDCUP PO PRN (05:18)
[2023-01-07 05:28] VITALS: BMI 22.6
[2023-01-07] MEDS: Thiamine HCl 200 MG/2 ML VIAL SLOW IVP SCH (06:07)
[2023-01-07] MEDS: chlordiazePOXIDE HCl 25 MG CAP PO SCH ×4 (06:07→23:13)
[2023-01-07] MEDS: Acetaminophen 325 MG TAB PO PRN ×2 (06:15→21:16)
[2023-01-07] MEDS ORDERED: Lorazepam 2 MG/ML VIAL SLOW IVP SCH (06:30)
[2023-01-07] MEDS ORDERED: Potassium Bicarbonate/Cit Ac 20 MEQ TAB PO SCH (08:00)
[2023-01-07] MEDS ORDERED: Magnesium 2 GM/50 ML(in water) 2 GM in Premix Bag 1 BAG IVPB SCH (08:00)
[2023-01-07] MEDS: Multivit, Therapeutic 1 TAB PO SCH (09:09)
[2023-01-07] MEDS: Folic Acid 1 MG TAB PO SCH (09:09)
[2023-01-07] MEDS: Lactated Ringer's 1,000 ML IV SCH ×2 (09:09→17:38)
[2023-01-07] MEDS: Dicyclomine 20 MG TAB PO SCH ×4 (09:10→21:14)
[2023-01-07] MEDS: HumaLOG 300 UNITS/3 ML VIAL SC PRN ×2 (12:14→22:08)
[2023-01-07] MEDS ORDERED: Lorazepam 1 MG TAB PO SCH (14:30)
[2023-01-07 16:15] LABS: Lactic Acid 1.5 mmol/L (0.5-2.2)
[2023-01-07 16:19] LABS: Anion Gap 12 mmol/L (10-20); BUN (Urea Nitrogen) 8 mg/dL (8.4-25.7); Calc. Creatinine Clearance 104 mL/min (70-130); Calcium 8.7 mg/dL (7.8-10.44); Carbon Dioxide 23 mmol/L (23-31); Chloride 106 mmol/L (98-107); Estimated GFR 100; Glucose 169 mg/dL (80-115); Potassium 4.3 mmol/L (3.5-5.1); Sodium 137 mmol/L (136-145)
[2023-01-07] MEDS ORDERED: Non-Formulary Item 1 EACH (Levemir Flexpen [Levemir Flexpen] 100 UNITS/ML Pen) SC SCH (21:00)
[2023-01-07] MEDS: Atorvastatin Calcium 40 MG TAB PO SCH (21:14)
[2023-01-07] MEDS: Simethicone Chewable 80 MG TAB PO PRN (23:13)
[2023-01-08] MEDS: Lactated Ringer's 1,000 ML IV SCH (02:01)
[2023-01-08] MEDS: Thiamine HCl 200 MG/2 ML VIAL SLOW IVP SCH (05:27)
[2023-01-08] MEDS: chlordiazePOXIDE HCl 25 MG CAP PO SCH ×3 (05:28→20:08)
[2023-01-08 07:15] LABS: #Eosinphils 0.1 thou/uL (0.0-0.7); #Lymphocytes 1.6 thou/uL (1.20-3.40); #Monocytes 0.3 thou/uL (0.11-0.59); #Neutrophils 2.3 thou/uL (1.40-6.50); %Basophils 0.6 % (0.0-1.0); %Eosinophils 1.9 % (0.0-10.0); %Lymphocytes 36.7 % (21.0-51.0); %Monocytes 6.1 % (0.0-10.0); %Neutrophils 54.7 % (42.0-75.0); Hemoglobin 13.1 g/dL (14.0-18.0); Mean Corpuscular HGB CONC 33.9 g/dL (32.0-36.0); Mean Corpuscular Hemoglobin 34.9 pg (27.0-31.0); Mean Platelet Volume 6.9 fL (7.4-10.4); Platelet Count 202 10x3/uL (130-400); RBC Distribution Width 12.2 % (11.5-14.5); Red Blood Cell (RBC) Count 3.76 mill/uL (4.70-6.10); White Blood Cell (WBC) Count 4.3 10x3/uL (4.8-10.8)
[2023-01-08 07:30] LABS: Anion Gap 10 mmol/L (10-20); BUN (Urea Nitrogen) 6 mg/dL (8.4-25.7); Calc. Creatinine Clearance 125 mL/min (70-130); Calcium 8.5 mg/dL (7.8-10.44); Carbon Dioxide 25 mmol/L (23-31); Chloride 107 mmol/L (98-107); Estimated GFR 105; Glucose 159 mg/dL (80-115); Potassium 3.6 mmol/L (3.5-5.1); Sodium 138 mmol/L (136-145)
[2023-01-08 07:33] LABS: Magnesium 1.6 mg/dL (1.6-2.6)
[2023-01-08] MEDS ORDERED: Magnesium 2 GM/50 ML(in water) 2 GM in Premix Bag 1 BAG IVPB SCH (08:15)
[2023-01-08] MEDS: Multivit, Therapeutic 1 TAB PO SCH (09:08)
[2023-01-08] MEDS: Dicyclomine 20 MG TAB PO SCH ×4 (09:09→20:08)
[2023-01-08] MEDS: Loratadine 10 MG TAB PO SCH (09:09)
[2023-01-08] MEDS: Folic Acid 1 MG TAB PO SCH (09:09)
[2023-01-08] MEDS: Metoprolol Tartrate 25 MG TAB PO SCH (09:10)
[2023-01-08] MEDS ORDERED: Lidocaine 4% Patch TD SCH (09:30)
[2023-01-08] MEDS ORDERED: Sucralfate 1 GM/10 ML UDCUP PO SCH (09:30)
[2023-01-08] MEDS ORDERED: Lorazepam 2 MG/ML VIAL SLOW IVP SCH (09:45)
[2023-01-08] MEDS: HumaLOG 300 UNITS/3 ML VIAL SC PRN ×3 (13:26→20:24)
[2023-01-08] MEDS: Sucralfate 1 GM/10 ML UDCUP PO SCH (20:07)
[2023-01-08] MEDS: Atorvastatin Calcium 40 MG TAB PO SCH (20:08)
[2023-01-08] MEDS: Insulin Glargine 30 UNITS/0.3 ML VIAL SC SCH (20:15)
[2023-01-08] MEDS: Transdermal Patch Removal TOP SCH (21:20)
[2023-01-09] MEDS ORDERED: Lorazepam 2 MG/ML VIAL SLOW IVP SCH (01:00)
[2023-01-09] MEDS: Thiamine HCl 200 MG/2 ML VIAL SLOW IVP SCH (06:02)
[2023-01-09] MEDS: chlordiazePOXIDE HCl 25 MG CAP PO SCH ×3 (06:02→20:18)
[2023-01-09 07:33] LABS: Magnesium 1.7 mg/dL (1.6-2.6)
[2023-01-09] MEDS ORDERED: Magnesium 2 GM/50 ML(in water) 2 GM in Premix Bag 1 BAG IVPB SCH (08:00)
[2023-01-09] MEDS: Sucralfate 1 GM/10 ML UDCUP PO SCH ×2 (08:48→20:19)
[2023-01-09] MEDS: Metoprolol Tartrate 25 MG TAB PO SCH (08:51)
[2023-01-09] MEDS: Dicyclomine 20 MG TAB PO SCH ×2 (08:52→13:08)
[2023-01-09] MEDS: Multivit, Therapeutic 1 TAB PO SCH (08:53)
[2023-01-09] MEDS: Loratadine 10 MG TAB PO SCH (08:53)
[2023-01-09] MEDS: Folic Acid 1 MG TAB PO SCH (08:53)
[2023-01-09] MEDS: Lidocaine 4% Patch TD SCH (08:54)
[2023-01-09] MEDS: Nitrofurantoin Monohyd/M-Cryst 100 MG CAP PO SCH ×2 (08:58→20:20)
[2023-01-09] MEDS ORDERED: Dicyclomine 20 MG TAB PO PRN (14:26)
[2023-01-09] MEDS: HumaLOG 300 UNITS/3 ML VIAL SC PRN (16:55)
[2023-01-09] MEDS: metFORMIN 500 MG TAB PO SCH (17:49)
[2023-01-09] MEDS: Simethicone Chewable 80 MG TAB PO PRN (20:18)
[2023-01-09] MEDS: Atorvastatin Calcium 40 MG TAB PO SCH (20:19)
[2023-01-09] MEDS: Acetaminophen 325 MG TAB PO PRN (20:19)
[2023-01-09] MEDS: Magnesium Oxide 400 MG TAB PO SCH (20:19)
[2023-01-09] MEDS: Insulin Glargine 30 UNITS/0.3 ML VIAL SC SCH (20:20)
[2023-01-09] MEDS: Transdermal Patch Removal TOP SCH (20:43)
[2023-01-09 23:49] LABS: Campy jejuni + coli by PCR Negative (Negative); STEC Shiga Toxin 1+2 Negative (Negative); Salmonella spp. by PCR Negative (Negative); Shigella spp + EIEC by PCR Negative (Negative)
[2023-01-10] MEDS: chlordiazePOXIDE HCl 25 MG CAP PO SCH (05:08)
[2023-01-10] MEDS: Acetaminophen 325 MG TAB PO PRN (05:08)
[2023-01-10] MEDS: HumaLOG 300 UNITS/3 ML VIAL SC PRN ×3 (05:58→16:13)
[2023-01-10 07:10] LABS: Anion Gap 13 mmol/L (10-20); BUN (Urea Nitrogen) 7 mg/dL (8.4-25.7); Calc. Creatinine Clearance 113 mL/min (70-130); Calcium 8.6 mg/dL (7.8-10.44); Carbon Dioxide 23 mmol/L (23-31); Chloride 106 mmol/L (98-107); Estimated GFR 102; Glucose 164 mg/dL (80-115); Magnesium 1.8 mg/dL (1.6-2.6); Potassium 3.6 mmol/L (3.5-5.1); Sodium 138 mmol/L (136-145)
[2023-01-10] MEDS ORDERED: Electrolyte Replacement Protocol FS PRN (07:15)
[2023-01-10] MEDS ORDERED: Magnesium 2 GM/50 ML(in water) 2 GM in Premix Bag 1 BAG IVPB SCH (07:30)
[2023-01-10] MEDS: Lidocaine 4% Patch TD SCH (08:20)
[2023-01-10] MEDS: Magnesium Oxide 400 MG TAB PO SCH (08:21)
[2023-01-10] MEDS: Sucralfate 1 GM/10 ML UDCUP PO SCH (08:21)
[2023-01-10] MEDS: Folic Acid 1 MG TAB PO SCH (08:21)
[2023-01-10] MEDS: Metoprolol Tartrate 25 MG TAB PO SCH ×2 (08:21→08:26)
[2023-01-10] MEDS: Nitrofurantoin Monohyd/M-Cryst 100 MG CAP PO SCH (08:22)
[2023-01-10] MEDS: metFORMIN 500 MG TAB PO SCH (08:22)
[2023-01-10] MEDS: Loratadine 10 MG TAB PO SCH (08:22)
[2023-01-10] MEDS: Multivit, Therapeutic 1 TAB PO SCH (08:22)
[2023-01-10] MEDS ORDERED: Thiamine 100 MG TAB PO SCH (09:00)
[2023-01-10] MEDS ORDERED: chlordiazePOXIDE HCl 25 MG CAP PO SCH (15:00)
[2023-01-10 16:21] VITALS: BP 134/80; TEMP 97.5
[2023-01-10] MEDS ORDERED: Magnesium Oxide 400 MG TAB PO SCH (21:00)
== END 2023-01-10 17:00 | disposition home or self-care (01) | DRG 392 ==
LOC: ERS 20:02 → INTOOBSV 01-07 03:39 → SURG A 01-07 03:39 → OBSVTOIN 01-08 09:43
PROVIDERS: ADMIT Family Medicine; ATTEND Family Medicine
DX: K29.20 Alcoholic gastritis without bleeding (principal); E87.20 Acidosis, unspecified; R45.851 Suicidal ideations; F10.10 Alcohol abuse, uncomplicated; E11.9 Type 2 diabetes mellitus without complications; J44.9 Chronic obstructive pulmonary disease, unspecified; E83.42 Hypomagnesemia; E87.6 Hypokalemia; I10 Essential (primary) hypertension; M54.9 Dorsalgia, unspecified; F17.210 Nicotine dependence, cigarettes, uncomplicated; F43.81 Prolonged grief disorder; Z88.8 Allergy status to other drugs, medicaments and biological substances; Z79.899 Other long term (current) drug therapy; Z79.82 Long term (current) use of aspirin; Z88.1 Allergy status to other antibiotic agents; Z90.49 Acquired absence of other specified parts of digestive tract; Z98.890 Other specified postprocedural states; Z79.84 Long term (current) use of oral hypoglycemic drugs
CPT/HCPCS: 36415; 36416; 71045; 74177; 74230; 80048; 80053; 80306; 80307; 81003; 81015; 82607; 83605; 83690; 83735; 84100; 84443; 84484; 85025; 87040; 87077; 87086; 87186; 87505; 87811; 93005; 96361; 96365; 96372; 96375; 96376; G0378; J1650; J1815; J2060; J2543; J3411; J3475; J7120; Q9966

== ENCOUNTER 2023-01-26 20:10 | Emergency (ER) | payer OTHER | END 2023-01-26 21:12 | disposition home or self-care (01) | LOC: ERS 20:10 | DX: M54.9 Dorsalgia, unspecified (principal); G89.29 Other chronic pain; F10.129 Alcohol abuse with intoxication, unspecified | CPT/HCPCS: 36416; 99284 ==

== ENCOUNTER 2023-01-30 21:12 | Emergency (ER) | payer OTHER | END 2023-01-31 07:49 | disposition home or self-care (01) | LOC: ERS 21:12 | DX: F10.129 Alcohol abuse with intoxication, unspecified (principal); E11.9 Type 2 diabetes mellitus without complications; I10 Essential (primary) hypertension; J44.9 Chronic obstructive pulmonary disease, unspecified; F17.210 Nicotine dependence, cigarettes, uncomplicated; Y90.9 Presence of alcohol in blood, level not specified | CPT/HCPCS: 99284 ==

== ENCOUNTER 2023-02-16 18:38 | Emergency (ER) | payer OTHER, SELFPAY ==
[2023-02-16 19:28] LABS: Bacteria/HPF None Seen HPF (None Seen); Bilirubin Negative (Negative); Blood, Urine Negative (Negative); Clarity Clear (Clear); Glucose, Urine (Dipstick) Normal (Negative); Ketone, Urine Negative (Negative); Leukocyte 75 Leu/uL (Negative); Nitrite Negative (Negative); Protein, Urine (Dipstick) Negative (Neg-Trace); RBC/HPF 0-3 HPF (0-3); Specific Gravity, Urine 1.006 (1.002-1.036); Squamous Epithelial None Seen HPF (0-3); Urobilinogen Normal mg/dL (Less than 2); WBC/HPF 0-3 HPF (0-3)
[2023-02-16 19:34] LABS: Amphetamine Not Detected (NotDetected); Barbiturates Screen Not Detected (NotDetected); Benzodiazepine Screen Not Detected (NotDetected); Cocaine Metabolite Screen Not Detected (NotDetected); Methadone Not Detected (NotDetected); Methamphetamine Not Detected (NotDetected); Opiate Screen Not Detected (NotDetected); Oxycodone Screen Not Detected (NotDetected); Phencyclidine (PCP) Not Detected (NotDetected); THC/Cannabinoid Screen Not Detected (NotDetected); Tricyclic Screen Not Detected (NotDetected)
[2023-02-16] MEDS ORDERED: Acetaminophen 500 MG TAB ONE (20:13)
[2023-02-16 20:24] LABS: Hemoglobin 13.6 g/dL (14.0-18.0); Mean Corpuscular HGB CONC 35.6 g/dL (32.0-36.0); Mean Corpuscular Hemoglobin 35.7 pg (27.0-31.0); Platelet Count 208 10x3/uL (130-400); RBC Distribution Width 12.4 % (11.5-14.5); Red Blood Cell (RBC) Count 3.81 mill/uL (4.70-6.10); White Blood Cell (WBC) Count 6.1 10x3/uL (4.8-10.8)
[2023-02-16 20:27] LABS: Acetaminophen Less than 10.0 mcg/mL (10.0-30.0); Alcohol 152 mg/dL (Less than 10); Salicylate Less than 8.0 mg/dL (15.0-30.0)
[2023-02-16 20:28] LABS: ALT (SGPT) 18 U/L (8-55); AST (SGOT) 25 U/L (5-34); Albumin 3.9 g/dL (3.4-4.8); Alkaline Phosphatase 57 U/L (40-110); Anion Gap 15 mmol/L (10-20); BUN (Urea Nitrogen) 7 mg/dL (8.4-25.7); Bilirubin, Total 0.2 mg/dL (0.2-1.2); CK (CPK) 52 U/L (30-200); Calc. Creatinine Clearance 0 mL/min (70-130); Calcium 9.3 mg/dL (7.8-10.44); Carbon Dioxide 20 mmol/L (23-31); Chloride 110 mmol/L (98-107); Estimated GFR 99; Globulin 2.6 g/dL (2.4-3.5); Glucose 147 mg/dL (83-110); Potassium 3.4 mmol/L (3.5-5.1); Protein, Total 6.5 g/dL (5.8-8.1); Sodium 142 mmol/L (136-145)
[2023-02-16 20:49] LABS: Band 1 % (5-11); Lymphocytes 51 % (21-51); MDiff Complete? YES; Macrocytosis SLIGHT = 6-15 cells (100X) (0-5/hpf); Monocytes 3 % (0-10); Neutrophil 45 % (42-75); Platelet Morphology Comment Appears Adequate
[2023-02-17] MEDS ORDERED: Ondansetron ODT 4 MG TAB ONE (01:57)
== END 2023-02-17 07:30 | disposition home or self-care (01) ==
LOC: ERS 18:38
DX: F10.129 Alcohol abuse with intoxication, unspecified (principal); F32.9 Major depressive disorder, single episode, unspecified; E11.9 Type 2 diabetes mellitus without complications; E78.5 Hyperlipidemia, unspecified; I10 Essential (primary) hypertension; J44.9 Chronic obstructive pulmonary disease, unspecified; F17.210 Nicotine dependence, cigarettes, uncomplicated; Z79.84 Long term (current) use of oral hypoglycemic drugs
CPT/HCPCS: 36415; 71045; 80053; 80306; 80307; 81003; 81015; 82550; 84443; 84484; 85025; 93005; Q0162

== ENCOUNTER 2023-02-25 12:20 | Emergency (ER) | payer OTHER ==
[2023-02-25] MEDS ORDERED: HYDROcodone/Acetaminophen 5/325 mg Tablet ONE (12:37)
[2023-02-25] MEDS ORDERED: Ketorolac Tromethamine 30 MG/ML VIAL ONE (12:38)
[2023-02-25] MEDS ORDERED: Lidocaine 4% Cream 5 GM TUBE w/ Tegaderm ONE ×2 (12:38→12:41)
[2023-02-25] MEDS ORDERED: Lidocaine 1% (PF) 30 ML VIAL ONE (12:39)
[2023-02-25] MEDS ORDERED: Lidocaine 4% Patch TD SCH (13:00)
[2023-02-26] MEDS ORDERED: LIDOCAINE Patch Removal TOP SCH (01:00)
== END 2023-02-25 13:35 | disposition home or self-care (01) ==
LOC: ERS 12:20
DX: M54.50 Low back pain, unspecified (principal); E11.9 Type 2 diabetes mellitus without complications; I10 Essential (primary) hypertension; E78.5 Hyperlipidemia, unspecified; J44.9 Chronic obstructive pulmonary disease, unspecified; F17.210 Nicotine dependence, cigarettes, uncomplicated; Z79.84 Long term (current) use of oral hypoglycemic drugs; Z79.899 Other long term (current) drug therapy
CPT/HCPCS: 96372; 99283; J1885; J2001

== ENCOUNTER 2023-03-03 21:22 | Emergency (ER) | payer OTHER ==
[2023-03-04] MEDS ORDERED: Acetaminophen 500 MG TAB ONE ×2 (06:37)
== END 2023-03-04 06:55 | disposition home or self-care (01) ==
LOC: ERS 21:22
DX: M54.9 Dorsalgia, unspecified (principal); F43.0 Acute stress reaction; F10.129 Alcohol abuse with intoxication, unspecified

== ENCOUNTER 2023-03-04 10:29 | Emergency (ER) | payer OTHER ==
[2023-03-04] MEDS ORDERED: Ibuprofen 200 MG TAB ONE (11:52)
[2023-03-04] MEDS ORDERED: Ondansetron PF 4 MG/2 ML Vial ONE (12:05)
== END 2023-03-04 13:50 | disposition home or self-care (01) ==
LOC: ERS 10:29
DX: S09.90XA Unspecified injury of head, initial encounter (principal); F10.129 Alcohol abuse with intoxication, unspecified; E11.9 Type 2 diabetes mellitus without complications; E78.5 Hyperlipidemia, unspecified; I10 Essential (primary) hypertension; J44.9 Chronic obstructive pulmonary disease, unspecified; W18.30XA Fall on same level, unspecified, initial encounter; Y90.9 Presence of alcohol in blood, level not specified
CPT/HCPCS: 70450; 72125; 93005; 96374; 99283; J2405

== ENCOUNTER 2023-09-09 07:17 | Emergency (ER) | payer OTHER | END 2023-09-09 10:17 | disposition home or self-care (01) | LOC: ERS 07:51 | DX: M54.50 Low back pain, unspecified (principal); G89.29 Other chronic pain; M54.2 Cervicalgia; R53.1 Weakness; E11.65 Type 2 diabetes mellitus with hyperglycemia; I10 Essential (primary) hypertension; F17.210 Nicotine dependence, cigarettes, uncomplicated; Z79.84 Long term (current) use of oral hypoglycemic drugs; Z79.899 Other long term (current) drug therapy; W05.0XXA Fall from non-moving wheelchair, initial encounter; Y93.01 Activity, walking, marching and hiking ==

== ENCOUNTER 2023-10-31 05:40 | Emergency (ER) | payer OTHER ==
[2023-10-31] MEDS ORDERED: fentaNYL 50 mcg/mL 1 mL Vial ONE ×2 (06:27→09:01)
[2023-10-31 06:48] LABS: #Eosinphils 0.1 thou/uL (0.0-0.7); #Monocytes 0.6 thou/uL (0.11-0.59); #Neutrophils 5.1 thou/uL (1.40-6.50); %Basophils 0.4 % (0.0-1.0); %Eosinophils 1.4 % (0.0-10.0); %Lymphocytes 26.7 % (21.0-51.0); %Monocytes 7.3 % (0.0-10.0); %Neutrophils 63.9 % (42.0-75.0); Hematocrit 40.7 % (42.0-52.0); Hemoglobin 13.9 g/dL (14.0-18.0); Mean Corpuscular HGB CONC 34.2 g/dL (32.0-36.0); Mean Corpuscular Hemoglobin 33.2 pg (27.0-31.0); Mean Corpuscular Volume 97.1 fl (78.0-98.0); Mean Platelet Volume 9.1 fL (7.4-10.4); Platelet Count 216 10x3/uL (130-400); RBC Distribution Width 13.2 % (11.5-14.5); Red Blood Cell (RBC) Count 4.19 mill/uL (4.70-6.10); White Blood Cell (WBC) Count 7.9 10x3/uL (4.8-10.8)
[2023-10-31 07:10] LABS: ALT (SGPT) 15 U/L (8-55); AST (SGOT) 15 U/L (5-34); Albumin 4.2 g/dL (3.4-4.8); Alkaline Phosphatase 78 U/L (40-110); Anion Gap 12 mmol/L (10-20); BUN (Urea Nitrogen) 13 mg/dL (8.4-25.7); Bilirubin, Total 0.7 mg/dL (0.2-1.2); Calc. Creatinine Clearance 0 mL/min (70-130); Carbon Dioxide 22 mmol/L (23-31); Chloride 103 mmol/L (98-107); Estimated GFR 95; Globulin 3.1 g/dL (2.4-3.5); Glucose 244 mg/dL (83-110); Potassium 4.4 mmol/L (3.5-5.1); Protein, Total 7.3 g/dL (5.8-8.1); Sodium 133 mmol/L (136-145)
[2023-10-31] MEDS ORDERED: Lidocaine 1% w/Epinephrine 1:100K 20 ML VIAL ONE (08:27)
[2023-10-31 08:56] LABS: Bacteria/HPF None Seen HPF (None Seen); Bilirubin Negative (Negative); Blood, Urine Negative (Negative); CAUTI Indications for Culture Dysuria,urgency,freq; Clarity Clear (Clear); Glucose, Urine (Dipstick) >=1000 mg/dL (Negative); Ketone, Urine Negative (Negative); Leukocyte 25 Leu/uL (Negative); Nitrite Negative (Negative); Protein, Urine (Dipstick) Negative (Neg-Trace); RBC/HPF 0-3 HPF (0-3); Squamous Epithelial 0-3 HPF (0-3); Urobilinogen Normal mg/dL (Less than 2); pH, Urine 5.5 (5.0-9.0)
[2023-10-31 08:57] LABS: Specific Gravity, Urine 1.046 (1.002-1.036)
[2023-10-31 08:59] LABS: Urine Culture Reflex No No
[2023-10-31] MEDS ORDERED: Iopamidol-370 76% 500 ML MDV (1 ML CHARGE) ONE (09:02)
== END 2023-10-31 09:44 | disposition home or self-care (01) ==
LOC: ERS 05:40
DX: L02.212 Cutaneous abscess of back [any part, except buttock and flank] (principal); L03.312 Cellulitis of back [any part except buttock and flank]; E11.9 Type 2 diabetes mellitus without complications; I10 Essential (primary) hypertension; F17.210 Nicotine dependence, cigarettes, uncomplicated
CPT/HCPCS: 10060; 36415; 71260; 80053; 81001; 83605; 85025; 87040; 87077; 87149; 96374; 96376; J3010; Q9967

== ENCOUNTER 2024-04-11 17:16 | Emergency (ER) | payer OTHER ==
[2024-04-11] MEDS ORDERED: Ibuprofen 800 MG TAB ONE (17:29)
[2024-04-11 18:03] LABS: #Basophils Less than 0.03 10x3/uL (0.0-0.2); %Basophils 0.2 % (0.0-1.0); %Eosinophils 0.3 % (0.0-10.0); %Lymphocytes 5.2 % (21.0-51.0); %Monocytes 6.6 % (0.0-10.0); %Neutrophils 87.4 % (42.0-75.0); Hematocrit 37.9 % (42.0-52.0); Mean Corpuscular HGB CONC 34.3 g/dL (32.0-36.0); Mean Corpuscular Hemoglobin 33.8 pg (27.0-31.0); Mean Corpuscular Volume 98.4 fL (78.0-98.0); Mean Platelet Volume 9.1 fL (7.4-10.4); Platelet Count 220 10x3/uL (130-400); RBC Distribution Width 12.9 % (11.5-14.5); Red Blood Cell (RBC) Count 3.85 mill/uL (4.70-6.10)
[2024-04-11 18:21] LABS: Bilirubin Negative (Negative); Blood, Urine Negative (Negative); CAUTI Indications for Culture Dysuria,urgency,freq; Clarity Clear (Clear); Glucose, Urine (Dipstick) Normal (Negative); Ketone, Urine Negative (Negative); Leukocyte 250 Leu/uL (Negative); Nitrite Negative (Negative); Protein, Urine (Dipstick) Negative (Neg-Trace); RBC/HPF 0-3 HPF (0-3); Specific Gravity, Urine 1.017 (1.002-1.036); Squamous Epithelial 0-3 HPF (0-3); Urobilinogen Normal mg/dL (Less than 2); WBC/HPF Greater than 50 HPF (0-3)
[2024-04-11 18:22] LABS: Bacteria/HPF 1+ HPF (None Seen); Urine Culture Reflex Yes Yes
[2024-04-11 18:30] LABS: ALT (SGPT) 18 U/L (8-55); AST (SGOT) 22 U/L (5-34); Albumin 3.4 g/dL (3.4-4.8); Alkaline Phosphatase 76 U/L (40-110); Anion Gap 14 mmol/L (10-20); BUN (Urea Nitrogen) 10 mg/dL (8.4-25.7); Bilirubin, Total 0.5 mg/dL (0.2-1.2); Calc. Creatinine Clearance 0 mL/min (70-130); Calcium 9.1 mg/dL (7.8-10.44); Carbon Dioxide 23 mmol/L (23-31); Chloride 103 mmol/L (98-107); Estimated GFR 100; Globulin 3.6 g/dL (2.4-3.5); Glucose 126 mg/dL (83-110); Lipase 19 U/L (8-78); Potassium 3.8 mmol/L (3.5-5.1); Sodium 136 mmol/L (136-145); Troponin I Less than 0.010 ng/mL (< 0.028)
[2024-04-11] MEDS ORDERED: HYDROcodone/Acetaminophen 5/325 mg Tablet ONE (19:42)
[2024-04-11] MEDS ORDERED: cefTRIAXone (ROCEPHIN) 1 GM VIAL ONE (19:43)
[2024-04-11] MEDS ORDERED: Sodium Chloride 0.9% 100 ML ONE (19:43)
== END 2024-04-11 20:20 | disposition home or self-care (01) ==
LOC: ERS 17:16
DX: N39.0 Urinary tract infection, site not specified (principal); F17.210 Nicotine dependence, cigarettes, uncomplicated
CPT/HCPCS: 36415; 71045; 80053; 81001; 83605; 83690; 83880; 84484; 85025; 87040; 87077; 87086; 87149; 93005; 96365; J0696; J3490

== ENCOUNTER 2024-11-02 18:53 | Emergency (ER) | payer OTHER ==
[2024-11-02 19:45] LABS: #Basophils Less than 0.03 10x3/uL (0.0-0.2); %Basophils 0.3 % (0.0-1.0); %Eosinophils 0.8 % (0.0-10.0); %Lymphocytes 42.4 % (21.0-51.0); %Monocytes 5.3 % (0.0-10.0); %Neutrophils 50.8 % (42.0-75.0); Hematocrit 40.4 % (42.0-52.0); Hemoglobin 13.8 g/dL (14.0-18.0); Mean Corpuscular HGB CONC 34.2 g/dL (32.0-36.0); Mean Corpuscular Hemoglobin 33.3 pg (27.0-31.0); Mean Corpuscular Volume 97.6 fL (78.0-98.0); Platelet Count 255 10x3/uL (130-400); RBC Distribution Width 12.8 % (11.5-14.5); Red Blood Cell (RBC) Count 4.14 mill/uL (4.70-6.10)
[2024-11-02 20:02] LABS: Acetaminophen Less than 10 mcg/mL (Less than 10); Alcohol 191.1 mg/dL (Less than 10); Salicylate Less than 8.0 mg/dL (Less than 8.0)
[2024-11-02 20:05] LABS: ALT (SGPT) 23 U/L (8-55); AST (SGOT) 31 U/L (5-34); Albumin 3.7 g/dL (3.4-4.8); Alkaline Phosphatase 72 U/L (40-110); Anion Gap 19 mmol/L (10-20); BUN (Urea Nitrogen) 6 mg/dL (8.4-25.7); Bilirubin, Total 0.2 mg/dL (0.2-1.2); Calc. Creatinine Clearance 0 mL/min (70-130); Calcium 8.8 mg/dL (7.8-10.44); Carbon Dioxide 18 mmol/L (23-31); Chloride 105 mmol/L (98-107); Estimated GFR 103; Globulin 3.4 g/dL (2.4-3.5); Glucose 140 mg/dL (83-110); Potassium 4.2 mmol/L (3.5-5.1); Protein, Total 7.1 g/dL (5.8-8.1); Sodium 138 mmol/L (136-145)
[2024-11-02] MEDS ORDERED: Acetaminophen 325 MG TAB ONE (20:45)
[2024-11-02 21:24] LABS: Amphetamine Not Detected (NotDetected); Barbiturates Screen Not Detected (NotDetected); Benzodiazepine Screen Not Detected (NotDetected); Cocaine Metabolite Screen Not Detected (NotDetected); Methadone Not Detected (NotDetected); Methamphetamine Not Detected (NotDetected); Opiate Screen Not Detected (NotDetected); Oxycodone Screen Not Detected (NotDetected); Phencyclidine (PCP) Not Detected (NotDetected); THC/Cannabinoid Screen Not Detected (NotDetected); Tricyclic Screen Not Detected (NotDetected)
[2024-11-02] MEDS ORDERED: Ketorolac Tromethamine 30 MG (1 mL) VIAL ONE (22:17)
== END 2024-11-02 22:34 | disposition home or self-care (01) ==
LOC: ERS 18:53
DX: F10.129 Alcohol abuse with intoxication, unspecified (principal); E11.9 Type 2 diabetes mellitus without complications; I10 Essential (primary) hypertension; F17.210 Nicotine dependence, cigarettes, uncomplicated; Y90.6 Blood alcohol level of 120-199 mg/100 ml
CPT/HCPCS: 70450; 72125; 80053; 80306; 80307; 85025; 96374; J1885